=== PATIENT | male | born 1985 | race American Indian/Alaskan Native ===

== ENCOUNTER 2016-11-16 22:34 | Emergency (ER) | payer SELFPAY ==
--- NOTE | 2016-11-17 02:52 | Emergency Department Report ---
ED Extremity Problem HPI - General Chief complaint: Extremity Problem,Nontraumatic Stated complaint: BACK/WRIST PAIN Time Seen by Provider: 11/17/16 02:47 Source: patient Mode of arrival: Ambulatory Limitations: No Limitations - History of Present Illness Initial comments: 30-year-old L comes in for complaint of back pain and wrist pain. Patient reports that he fell off a high stool on Saturday and has had pain ever since. 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 He complains of back pain that, shoots up his back. He reports he has been taken for extra strength Tylenol 2-3 times a day. As well as ibuprofen that his job gives him. Without any resolution. Severity scale (0 -10): 10 - Related Data Previous Rx's Medication Instructions Recorded Last Taken Type Fluticasone/Salmeterol [Advair 1 puff IH BID #1 disk.w.dev 12/02/15 04/19/16 Rx Diskus 250-50 mcg] ALBUTEROL Inhaler [ProAir HFA 2 puff IH QID PRN #1 inhalation 08/13/16 Unknown Rx Inhaler] Albuterol Sulfate [Albuterol 0.63% 0.63 mg IH TID PRN 30 Days 08/13/16 Unknown Rx NEBS] Montelukast [Singulair] 10 mg PO QPM #30 tablet 08/13/16 Unknown Rx predniSONE [Deltasone] 20 mg PO QDAY #5 tab 08/13/16 Unknown Rx ALBUTEROL Inhaler [ProAir HFA 2 puff IH QID PRN #1 inhalation 09/18/16 Unknown Rx Inhaler] Amoxicillin/K Clav Tab [Augmentin 1 tab PO Q12HR #20 tab 09/18/16 Unknown Rx 875 mg] Fluticasone/Salmeterol [Advair 1 each IH DAILY #1 blst.w.dev 09/18/16 Unknown Rx 250-50 Diskus] Ipratropium/Albuterol Sulfate 1 ampul IH Q6HR #1 box 09/18/16 Unknown Rx [Duoneb 0.5 mg-3 mg/3 ml Soln] Nebulizer [Aeroneb Go Nebulizer] 1 each MC 4XD PRN #1 each 09/18/16 Unknown Rx methylPREDNISolone [Medrol] 4 mg PO QAM #21 tab.ds.pk 09/18/16 Unknown Rx Naproxen [Naprosyn TAB] 500 mg PO BID #30 tablet 11/17/16 Unknown Rx methOCARBAMOL [Robaxin TAB] 500 mg PO BID #30 tablet 11/17/16 Unknown Rx Allergies Allergy/AdvReac Type Severity Reaction Status Date / Time No Known Allergies Allergy Verified 11/16/16 22:51 ED Review of Systems ROS: Stated complaint: BACK/WRIST PAIN Other details as noted in HPI Constitutional: denies: chills, fever Musculoskeletal: back pain, arthralgia (bilateral wrists) Neurological: denies: weakness, numbness, paresthesias ED Past Medical Hx - Past Medical History Hx Asthma: Yes - Social History Smoking Status: Never Smoker Substance Use Type: Alcohol, Non Opiate Pain, Prescribed - Medications Home Medications: Home Medications Medication Instructions Recorded Confirmed Last Taken Type Fluticasone/Salmeterol [Advair 1 puff IH BID #1 disk.w.dev 12/02/15 04/19/16 Rx Diskus 250-50 mcg] ALBUTEROL Inhaler [ProAir HFA 2 puff IH QID PRN #1 inhalation 08/13/16 Unknown Rx Inhaler] Albuterol Sulfate [Albuterol 0.63% 0.63 mg IH TID PRN 30 Days 08/13/16 Unknown Rx NEBS] Montelukast [Singulair] 10 mg PO QPM #30 tablet 08/13/16 Unknown Rx predniSONE [Deltasone] 20 mg PO QDAY #5 tab 08/13/16 Unknown Rx ALBUTEROL Inhaler [ProAir HFA 2 puff IH QID PRN #1 inhalation 09/18/16 Unknown Rx Inhaler] Amoxicillin/K Clav Tab [Augmentin 1 tab PO Q12HR #20 tab 09/18/16 Unknown Rx 875 mg] Fluticasone/Salmeterol [Advair 1 each IH DAILY #1 blst.w.dev 09/18/16 Unknown Rx 250-50 Diskus] Ipratropium/Albuterol Sulfate 1 ampul IH Q6HR #1 box 09/18/16 Unknown Rx [Duoneb 0.5 mg-3 mg/3 ml Soln] Nebulizer [Aeroneb Go Nebulizer] 1 each MC 4XD PRN #1 each 09/18/16 Unknown Rx methylPREDNISolone [Medrol] 4 mg PO QAM #21 tab.ds.pk 09/18/16 Unknown Rx Naproxen [Naprosyn TAB] 500 mg PO BID #30 tablet 11/17/16 Unknown Rx methOCARBAMOL [Robaxin TAB] 500 mg PO BID #30 tablet 11/17/16 Unknown Rx ED Physical Exam - General Limitations: No Limitations General appearance: alert, in no apparent distress - Head Head exam: Present: atraumatic - Expanded Upper Extremity Exam Left Shoulder Exam: Present: normal inspection, full ROM Forearm Wrist exam: Present: full ROM, tenderness over anatomical snuff box. Absent: tenderness (no snuffbox tenderness), swelling, deformity, crepidus, dislocation, erythema, pain with axial thumb loading Neuro motor exam: Present: wrist extension intact, thumb opposition intact, thumb IP flexion intact, thumb adduction intact, fingers 2-5 abduction intact Neurosensory exam: Present: radial nerve intact, ulnar nerve intact, median nerve intact Vascular: Present: normal capillary refill. Absent: vascular compromise, Pallo , pulse deficit radial art, pulse deficit ulnar art - Back Exam Back exam: Present: normal inspection, tenderness. Absent: vertebral tenderness - Expanded Back Exam Expanded Back exam: Negative Straight Leg Raising: Left, Right - Neurological Exam Neurological exam: Present: alert, oriented X3 ED Course Vital Signs 11/16/16 11/17/16 22:51 03:34 Temperature 98.4 F 98.1 F Pulse Rate 90 81 Respiratory 16 20 Rate Blood Pressure 137/90 Blood Pressure 137/90 161/82 [Left] O2 Sat by Pulse 95 98 Oximetry ED Medical Decision Making - Medical Decision Making Patient is evaluated by this provider in fast track. We will give patient a shot of Toradol for pain management. Exam is normal except tenderness to the lower back. We will discharge patient on naproxen 1 tablet by mouth 3 times a day and a referral to primary care provider. We will put patient on light duty for one week. Patient verbalized understanding Critical care attestation.: If time is entered above; I have spent that time in minutes in the direct care of this critically ill patient, excluding procedure time. ED Disposition Clinical Impression: Low back pain Qualifiers: Chronicity: acute Back pain laterality: left Sciatica presence: without sciatica Qualified Code(s): M54.5 - Low back pain Wrist pain Qualifiers: Laterality: bilateral Qualified Code(s): M25.531 - Pain in right wrist Disposition: DISCHARGED TO HOME OR SELFCARE Is pt being admited?: No Does the pt Need Aspirin: No Condition: Stable Instructions: Low Back Strain (ED), Wrist Sprain (ED) Additional Instructions: Take medication as prescribed follow up with the primary care provider we have provided for you referral. Placed you on light duty until the of this month. He may return on 11/19/2016. Prescriptions: Naproxen [Naprosyn TAB] 500 mg PO BID #30 tablet methOCARBAMOL [Robaxin TAB] 500 mg PO BID #30 tablet Referrals: PRIMARY CAREMD [Primary Care Provider] - 3-5 Days ALLISON FENTON MD [Staff Physician] - 3-5 Days [facility] [Provider Group] - 3-5 Days Forms: Work/School Release Form(ED)
[2016-11-17] MEDS ORDERED: TORADOL IM ONE (02:57)
[2016-11-17 03:36] VITALS: BP 161/82
== END 2016-11-17 03:48 | disposition home or self-care (01) ==
LOC: ED 22:34
DX: M54.5 Low back pain (principal); M25.531 Pain in right wrist; J45.909 Unspecified asthma, uncomplicated
CPT/HCPCS: 96372; 99282; J1885

== ENCOUNTER 2017-02-11 17:07 | Emergency (ER) | payer SELFPAY ==
[2017-02-11 19:38] VITALS: BP 141/81
[2017-02-11] MEDS ORDERED: MOTRIN PO ONE (20:30)
--- NOTE | 2017-02-11 20:31 | Emergency Department Report ---
ED Back Pain/Injury HPI - General Chief Complaint: Back Pain/Injury Stated Complaint: BACK PAIN Time Seen by Provider: 02/11/17 20:05 Source: patient Limitations: No Limitations - History of Present Illness Initial Comments: This is a 31-year-old male that presents with lower back pain for 3 months. Patient stated he was in a bar stool that tripped and fell from the bar stool onto his back. Patient stated has been seeing a chiropractor with no improvement. PCP ordered an x-ray because on the results. Patient stated took [id number] Tylenol and milligrams every 6 hours to relieve the pain. Patient stated has tenderness in the lumbar thoracic area. Denies any bladder instability. No numbness or tingling sensation in extremities. Patient denies any trauma. No Known drug allergies. 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 Stated that moving the boxes at work aggravates his lower back pain. MD Complaint: back pain -: Gradual, month(s) (3) Place: other (bar) Radiation: none Severity: moderate Severity scale (0 -10): 9 Quality: sharp Consistency: constant Improves With: immobilization, medication, supine, other (Tylenol 800 mg) Worsens With: movement, sitting upright Context: while lifting Associated Symptoms: denies: numbness, difficulty urinating, incontinence, fever /chills - Related Data Previous Rx's Medication Instructions Recorded Last Taken Type Ipratropium/Albuterol Sulfate 1 ampul IH Q6HR #1 box 09/18/16 12/14/16 Rx [Duoneb 0.5 mg-3 mg/3 ml Soln] Fluticasone/Salmeterol [Advair 1 each IH DAILY #1 blst.w.dev 12/17/16 Unknown Rx 250-50 Diskus] Ipratropium/Albuterol Sulfate 1 ampul IH Q6HRT PRN #30 ampul.neb 12/17/16 Unknown Rx [Duoneb 0.5 mg-3 mg/3 ml Soln] Montelukast [Singulair] 10 mg PO QPM #30 tablet 12/17/16 Unknown Rx Prednisone [predniSONE 10 mg 10 mg PO .TAPER #1 tab.ds.pk 12/17/16 Unknown Rx (6-Day Pack, 21 Tabs)] Naproxen [Naprosyn TAB] 500 mg PO BID #20 tablet 02/11/17 Unknown Rx Prednisone [predniSONE] 40 mg PO QDAY 5 Days 02/11/17 Unknown Rx Allergies Allergy/AdvReac Type Severity Reaction Status Date / Time No Known Allergies Allergy Verified 11/16/16 22:51 ED Review of Systems ROS: Stated complaint: BACK PAIN Other details as noted in HPI Constitutional: denies: chills, fever Eyes: denies: eye pain, eye discharge, vision change ENT: denies: ear pain, throat pain Respiratory: denies: cough, shortness of breath, wheezing Cardiovascular: denies: chest pain, palpitations Endocrine: no symptoms reported Gastrointestinal: denies: abdominal pain, nausea, diarrhea Genitourinary: denies: urgency, dysuria Musculoskeletal: denies: back pain, joint swelling, arthralgia Skin: denies: rash, lesions Neurological: denies: headache, weakness, paresthesias Psychiatric: denies: anxiety, depression Hematological/Lymphatic: denies: easy bleeding, easy bruising ED Past Medical Hx - Past Medical History Hx Congestive Heart Failure: No Hx Diabetes: No Hx Asthma: Yes Hx COPD: No - Surgical History Past Surgical History?: No - Social History Smoking Status: Never Smoker Substance Use Type: Alcohol - Medications Home Medications: Home Medications Medication Instructions Recorded Confirmed Last Taken Type Ipratropium/Albuterol Sulfate 1 ampul IH Q6HR #1 box 09/18/16 12/15/16 12/14/16 Rx [Duoneb 0.5 mg-3 mg/3 ml Soln] Fluticasone/Salmeterol [Advair 1 each IH DAILY #1 blst.w.dev 12/17/16 Unknown Rx 250-50 Diskus] Ipratropium/Albuterol Sulfate 1 ampul IH Q6HRT PRN #30 ampul.neb 12/17/16 Unknown Rx [Duoneb 0.5 mg-3 mg/3 ml Soln] Montelukast [Singulair] 10 mg PO QPM #30 tablet 12/17/16 Unknown Rx Prednisone [predniSONE 10 mg 10 mg PO .TAPER #1 tab.ds.pk 12/17/16 Unknown Rx (6-Day Pack, 21 Tabs)] Naproxen [Naprosyn TAB] 500 mg PO BID #20 tablet 02/11/17 Unknown Rx Prednisone [predniSONE] 40 mg PO QDAY 5 Days 02/11/17 Unknown Rx ED Physical Exam - General Limitations: No Limitations General appearance: alert, in no apparent distress - Head Head exam: Present: atraumatic, normocephalic - Eye Eye exam: Present: normal appearance - ENT ENT exam: Present: mucous membranes moist - Neck Neck exam: Present: normal inspection - Respiratory Respiratory exam: Present: normal lung sounds bilaterally. Absent: respiratory distress - Cardiovascular Cardiovascular Exam: Present: regular rate, normal rhythm. Absent: systolic murmur, diastolic murmur, rubs, gallop - GI/Abdominal GI/Abdominal exam: Present: soft, normal bowel sounds - Rectal Rectal exam: Present: deferred - Extremities Exam Extremities exam: Present: normal inspection - Back Exam Back exam: Present: normal inspection, full ROM, tenderness (lumbar and thoracic ). Absent: CVA tenderness (R), CVA tenderness (L), muscle spasm, paraspinal tenderness, rash noted - Neurological Exam Neurological exam: Present: alert, oriented X3, CN II-XII intact - Psychiatric Psychiatric exam: Present: normal affect, normal mood - Skin Skin exam: Present: warm, dry, intact, normal color. Absent: rash ED Course Vital Signs 02/11/17 19:34 Temperature 98.4 F Pulse Rate 66 Respiratory 16 Rate Blood Pressure 141/81 O2 Sat by Pulse 96 Oximetry - Reevaluation(s) Reevaluation #1: 02/11/17 21:04 Reevaluated pain. Pain level is a 2 out of 10 currently. Patient does not feel ill appearance. ED Medical Decision Making - Medical Decision Making Ed course: 31-year-old male that presents with chronic lower back pain for 3 months. 1- ibuprofen 800 mg. 2- x-ray of thoracic and lumbar. Thoracic: suggested mild treating of the thoracic spine may be positional secondary to muscle spasm. No evident fracture. Lumbar. Unremarkable lumbar spine. 3- initially patient to follow-up with the orthopedic doctor in 3-5 days. 4-instructed the patient to come back to emergency room if any bladder stability , numbness or tingling, chest pain and short of breath noted. 5- at this time the patient does not seem toxic or ill appearance. Patient agrees to treatment plan and discharge instructions. No further questions nor from the patient. Critical care attestation.: If time is entered above; I have spent that time in minutes in the direct care of this critically ill patient, excluding procedure time. ED Disposition Clinical Impression: Lumbar radiculopathy Lower back pain Qualifiers: Chronicity: chronic Back pain laterality: unspecified Sciatica presence: without sciatica Qualified Code(s): M54.5 - Low back pain Disposition: DISCHARGED TO HOME OR SELFCARE Is pt being admited?: No Does the pt Need Aspirin: No Condition: Stable Instructions: Naproxen (By mouth), Lumbar Radiculopathy (ED), Chronic Back Pain (ED) Additional Instructions: Follow-up with a primary care doctor in 3-5 days. Follow-up with the orthopedic doctor in 3-5 days. His symptoms worsen such as bladder instability, shortness of breath, numbness or tingling, chest pain please report back to emergency room. Prescriptions: Naproxen [Naprosyn TAB] 500 mg PO BID #20 tablet Prednisone [predniSONE] 40 mg PO QDAY 5 Days Referrals: PRIMARY MD SCARLETT [Primary Care Provider] - 3-5 Days ELSA PARISI MD [Staff Physician] - 3-5 Days [facility] [Outside] - 3-5 Days [facility] [Outside] - 3-5 Days Forms: Work/School Release Form(ED)
--- NOTE | 2017-02-11 22:03 | XRay Report ---
FINAL REPORT EXAM: XR SPINE LUMBOSACRAL 2-3V HISTORY: low back tenderness TECHNIQUE: AP and lateral views lumbar spine PRIORS: None. FINDINGS: Lumbar lordosis is intact. Vertebral body heights and intervertebral disc spaces are preserved. No listhesis, spondylolysis or other fracture. IMPRESSION: Unremarkable lumbar spine radiographs. Consider additional imaging for worsening/persistent symptoms.
--- NOTE | 2017-02-11 22:08 | XRay Report ---
FINAL REPORT EXAM: XR SPINE THORACIC 2V HISTORY: mid back tenderness COMPARISONS: None FINDINGS: AP and lateral views thoracic spine Straightening of the thoracic spine. Vertebral body heights intervertebral disc spaces are preserved. No fractures. Incomplete evaluation of the chest is unremarkable. IMPRESSION: Suggested mild straightening of the thoracic spine may be positional or secondary to muscular spasm. No evident fracture.
== END 2017-02-12 01:24 | disposition home or self-care (01) ==
LOC: ED 17:07
DX: M54.16 Radiculopathy, lumbar region (principal); J45.909 Unspecified asthma, uncomplicated
CPT/HCPCS: 72070; 72100

== ENCOUNTER 2017-07-14 11:39 | Emergency (ER) | payer SELFPAY ==
[2017-07-14] MEDS ORDERED: PROVENTIL IH ONE ×2 (11:54)
[2017-07-14] MEDS ORDERED: ATROVENT IH ONE ×3 (11:54→11:57)
[2017-07-14] MEDS ORDERED: XYLOCAINE 1% MPF 5 mL INFILTRATI ONE (12:09)
[2017-07-14] MEDS ORDERED: ROCEPHIN IM ONE (12:09)
--- NOTE | 2017-07-14 12:11 | Emergency Department Report ---
ED Asthma HPI - General Chief Complaint: Dyspnea/Respdistress Stated Complaint: DEON/ASTHMA Time Seen by Provider: 07/14/17 12:04 Source: patient, RN notes reviewed, old records reviewed Mode of arrival: Ambulatory Limitations: No Limitations - History of Present Illness MD Complaint: "asthma attack" -: Gradual Asthma History: childhood onset Severity: moderate Context: ran out of meds, medication non-compliance Associated Symptoms: productive cough. denies: dry cough, fever Treatments Prior to Arrival: other (no alb dt finances; out of prednisone) - Related Data Previous Rx's Medication Instructions Recorded Last Taken Type Ipratropium/Albuterol Sulfate 1 ampul IH Q6HR #1 box 09/18/16 12/14/16 Rx [DUONEB *Not for PRN Use*] Fluticasone/Salmeterol [Advair 1 each IH DAILY #1 blst.w.dev 12/17/16 Unknown Rx 250-50 Diskus] Ipratropium/Albuterol Sulfate 1 ampul IH Q6HRT PRN #30 ampul.neb 12/17/16 Unknown Rx [DUONEB *Not for PRN Use*] Montelukast [Singulair] 10 mg PO QPM #30 tablet 12/17/16 Unknown Rx Prednisone [predniSONE 10 mg 10 mg PO .TAPER #1 tab.ds.pk 12/17/16 Unknown Rx (6-Day Pack, 21 Tabs)] Naproxen [Naprosyn TAB] 500 mg PO BID #20 tablet 02/11/17 Unknown Rx Prednisone [predniSONE] 40 mg PO QDAY 5 Days 02/11/17 Unknown Rx ALBUTEROL Inhaler [ProAir HFA 2 puff IH TID PRN #1 each 07/14/17 Unknown Rx Inhaler] predniSONE [Deltasone] 60 mg PO DAILY #15 tablet 07/14/17 Unknown Rx Allergies Allergy/AdvReac Type Severity Reaction Status Date / Time No Known Allergies Allergy Verified 11/16/16 22:51 ED Review of Systems ROS: Stated complaint: DEON/ASTHMA Other details as noted in HPI Comment: All other systems reviewed and negative Constitutional: no symptoms reported, see HPI. denies: chills, fever Eyes: as per HPI. denies: eye pain ENT: as per HPI. denies: ear pain, throat pain Respiratory: no symptoms reported, see HPI, shortness of breath, wheezing. denies: cough, orthopnea Cardiovascular: as per HPI. denies: chest pain, palpitations, dyspnea on exertion, orthopnea Endocrine: no symptoms reported, see HPI. denies: excessive sweating, flushing , intolerance to cold, intolerance to heat Gastrointestinal: as per HPI. denies: abdominal pain, nausea, vomiting Genitourinary: as per HPI. denies: urgency, dysuria Musculoskeletal: as per HPI. denies: back pain Skin: as per HPI. denies: rash, lesions Neurological: as per HPI. denies: headache, weakness Psychiatric: as per HPI. denies: anxiety, depression Hematological/Lymphatic: as per HPI. denies: easy bleeding ED Past Medical Hx - Past Medical History Hx Hypertension: No Hx CVA: No Hx Heart Attack/AMI: No Hx Congestive Heart Failure: No Hx Diabetes: No Hx Asthma: Yes Hx COPD: No - Social History Smoking Status: Never Smoker Substance Use Type: Alcohol - Medications Home Medications: Home Medications Medication Instructions Recorded Confirmed Last Taken Type Ipratropium/Albuterol Sulfate 1 ampul IH Q6HR #1 box 09/18/16 12/15/16 12/14/16 Rx [DUONEB *Not for PRN Use*] Fluticasone/Salmeterol [Advair 1 each IH DAILY #1 blst.w.dev 12/17/16 Unknown Rx 250-50 Diskus] Ipratropium/Albuterol Sulfate 1 ampul IH Q6HRT PRN #30 ampul.neb 12/17/16 Unknown Rx [DUONEB *Not for PRN Use*] Montelukast [Singulair] 10 mg PO QPM #30 tablet 12/17/16 Unknown Rx Prednisone [predniSONE 10 mg 10 mg PO .TAPER #1 tab.ds.pk 12/17/16 Unknown Rx (6-Day Pack, 21 Tabs)] Naproxen [Naprosyn TAB] 500 mg PO BID #20 tablet 02/11/17 Unknown Rx Prednisone [predniSONE] 40 mg PO QDAY 5 Days 02/11/17 Unknown Rx ALBUTEROL Inhaler [ProAir HFA 2 puff IH TID PRN #1 each 07/14/17 Unknown Rx Inhaler] predniSONE [Deltasone] 60 mg PO DAILY #15 tablet 07/14/17 Unknown Rx ED Physical Exam - General Limitations: No Limitations General appearance: alert - Head Head exam: Present: atraumatic - Eye Eye exam: Present: PERRL - ENT ENT exam: Present: mucous membranes moist - Neck Neck exam: Present: normal inspection - Respiratory Respiratory exam: Present: normal lung sounds bilaterally, wheezes (b) - Cardiovascular Cardiovascular Exam: Present: regular rate - GI/Abdominal GI/Abdominal exam: Present: soft - Rectal Rectal exam: Present: deferred - Extremities Exam Extremities exam: Present: normal inspection - Back Exam Back exam: Present: normal inspection - Neurological Exam Neurological exam: Present: alert, oriented X3 - Psychiatric Psychiatric exam: Present: normal affect, normal mood - Skin Skin exam: Present: warm, dry, intact ED Course Vital Signs 07/14/17 07/14/17 07/14/17 11:57 12:02 12:43 Pulse Rate [ 81 84 Posterior Bilateral Throughout] Respiratory 18 18 Rate [Posterior Bilateral Throughout] O2 Sat by Pulse 96 Oximetry - Reevaluation(s) Reevaluation #1: 07/14/17 12:45 to er w asthma attack wheezing b on admit improved but still wheezing p 1st tx repeated sat high 90's 1246 99% sat on RA VSS resting quietly dc home w dc poc and fu. no s/s infection no fever no purulent sputum ED Medical Decision Making - Differential Diagnosis asthma ae w or wo infection Critical care attestation.: If time is entered above; I have spent that time in minutes in the direct care of this critically ill patient, excluding procedure time. ED Disposition Clinical Impression: Asthma exacerbation Disposition: DC- TO HOME OR SELFCARE Is pt being admited?: No Does the pt Need Aspirin: No Condition: Stable Instructions: Asthma (ED) Additional Instructions: rest fluids avoid triggers take home meds as instructed [facility] will be cheaper [employer] for pricing follow up pcp Referrals: PRIMARY CARE, [Primary Care Provider] - 3-5 Days NARENDRA CHAMPION MD [Staff Physician] - 3-5 Days Time of Disposition: 12:47
[2017-07-14] MEDS ORDERED: DUONEB *Not for PRN Use IH ONE (12:26)
[2017-07-14 13:23] VITALS: BP 152/64
== END 2017-07-14 13:25 | disposition home or self-care (01) ==
LOC: ED 11:39
DX: J45.901 Unspecified asthma with (acute) exacerbation (principal)
CPT/HCPCS: 94640; 94644; 96372; 99283; J0696; J2930

== ENCOUNTER 2018-05-19 20:40 | Inpatient (IN) | payer SELFPAY ==
[2018-05-19] MEDS ORDERED: PROVENTIL IH ONE (20:51)
[2018-05-19] MEDS ORDERED: NACL 0.9% 1000 ML 1,000 ML IV ONE (20:52)
[2018-05-19] MEDS ORDERED: MAGNESIUM SULFATE 2GM/50ML 2 GM/50 ML BAG IV ONE (21:02)
[2018-05-19 21:14] LABS: Basophils # (Auto) 0.1 K/mm3 (0.0-0.1); Basophils % (Auto) 0.7 % (0.0-1.8); Eosinophils # (Auto) 0.3 K/mm3 (0.0-0.4); Eosinophils % (Auto) 3.8 % (0.0-4.3); Hematocrit 44.2 % (35.5-45.6); Hemoglobin 15.1 gm/dl (11.8-15.2); Lymphocytes # (Auto) 3.5 K/mm3 (1.2-5.4); Lymphocytes % (Auto) 41.9 % (13.4-35.0); Mean Corpuscular HGB Conc 34 % (32-34); Mean Corpuscular Hemoglobin 32 pg (28-32); Mean Corpuscular Volume 95 fl (84-94); Monocytes # (Auto) 0.9 K/mm3 (0.0-0.8); Monocytes % (Auto) 10.5 % (0.0-7.3); Platelet Count 352 K/mm3 (140-440); Red Blood Count 4.66 M/mm3 (3.65-5.03); Red Cell Distribution Width 13.7 % (13.2-15.2)
[2018-05-19 21:28] LABS: BUN/Creatinine Ratio 11; Blood Urea Nitrogen 9 mg/dL (9-20); Calcium 9.2 mg/dL (8.4-10.2); Hemolysis Index 71
--- NOTE | 2018-05-19 21:36 | XRay Report ---
FINAL REPORT EXAM: XR CHEST 1V AP HISTORY: chest pain resp distress TECHNIQUE: upright single view chest PRIORS: None. FINDINGS: Cardiac and mediastinal contours are unremarkable. No focal pulmonary infiltrate is identified. No pleural fluid collection seen. Pulmonary vasculature is unremarkable. IMPRESSION: Negative single-view chest
[2018-05-19] MEDS ORDERED: DUONEB *Not for PRN Use IH ONE (22:46)
--- NOTE | 2018-05-20 01:36 | Emergency Department Report ---
HPI - General Chief Complaint: Dyspnea/Respdistress Time Seen by Provider: 05/19/18 20:51 - HPI HPI: The patient is a 32-year-old male with a sniffing history of asthma, who presents for evaluation of dyspnea. The patient reports constant and severe dyspnea for the past one day, exacerbated with exertion or coughing, improved at rest and with breathing treatments. The patient denies trauma to the chest, chest pain, syncope, hemoptysis, unilateral leg swelling, recent immobilization , history of DVT or PE, hx of recent cancer. ED Past Medical Hx - Past Medical History Previous Medical History?: Yes Hx Hypertension: No Hx CVA: No Hx Heart Attack/AMI: No Hx Congestive Heart Failure: No Hx Diabetes: No Hx Asthma: Yes Hx COPD: No - Surgical History Past Surgical History?: No - Social History Smoking Status: Never Smoker Substance Use Type: Alcohol - Medications Home Medications: Home Medications Medication Instructions Recorded Confirmed Last Taken Type Ipratropium/Albuterol Sulfate 1 ampul IH Q6HR #1 box 09/18/16 05/19/18 12/14/16 Rx [DUONEB *Not for PRN Use*] Fluticasone/Salmeterol [Advair 1 each IH DAILY #1 blst.w.dev 12/17/16 05/19/18 Unknown Rx 250-50 Diskus] Ipratropium/Albuterol Sulfate 1 ampul IH Q6HRT PRN #30 ampul.neb 12/17/16 Unknown Rx [DUONEB *Not for PRN Use*] Montelukast [Singulair] 10 mg PO QPM #30 tablet 12/17/16 05/19/18 Unknown Rx Prednisone [predniSONE 10 mg 10 mg PO .TAPER #1 tab.ds.pk 12/17/16 05/19/18 Unknown Rx (6-Day Pack, 21 Tabs)] Naproxen [Naprosyn TAB] 500 mg PO BID #20 tablet 02/11/17 05/19/18 Unknown Rx Prednisone [predniSONE] 40 mg PO QDAY 5 Days tab 02/11/17 05/19/18 Unknown Rx ALBUTEROL Inhaler [ProAir HFA 2 puff IH TID PRN #1 each 07/14/17 05/19/18 Unknown Rx Inhaler] predniSONE [Deltasone] 60 mg PO DAILY #15 tablet 07/14/17 05/19/18 Unknown Rx ED Review of Systems ROS: Stated complaint: ASTHMA Other details as noted in HPI Constitutional: denies: fever ENT: denies: throat or neck pain Respiratory: reports: cough, shortness of breath Cardiovascular: denies: chest pain Endocrine: denies unexplained weight loss or gain Gastrointestinal: denies: abdominal pain, nausea Genitourinary: denies: dysuria Musculoskeletal: denies: leg swelling Skin: denies: rash Neurological: denies: headache Hematological/Lymphatic: denies: easy bleeding or easy bruising Psych: denies sadness or hopelessness Physical Exam - Physical Exam Vital Signs: Vital Signs 05/19/18 05/19/18 05/19/18 20:45 21:06 22:26 Temperature 97.9 F Pulse Rate 121 H 105 H Pulse Rate [ 80 Left Middle Lobe] Respiratory 26 H 16 Rate Respiratory 18 Rate [Left Middle Lobe] Blood Pressure 170/85 Blood Pressure 105/66 [Left] O2 Sat by Pulse 95 100 Oximetry 05/19/18 05/19/18 23:48 23:51 Temperature Pulse Rate Pulse Rate [ 86 84 Left Middle Lobe] Respiratory Rate Respiratory 20 20 Rate [Left Middle Lobe] Blood Pressure Blood Pressure [Left] O2 Sat by Pulse Oximetry Physical Exam: General: well-nourished, well-developed, no acute distress Head: Normocephalic, atraumatic Eyes: normal sclera ENT: Mucous membranes are pink and moist Neck: trachea midline, neck supple, No neck stiffness, no cervical adenopathy Respiratory: Diminished breath sounds and wheezing present throughout lung iyer bilaterally, costal retractions present, patient in mild respiratory distress Cardio: S1 and S2 present, no murmurs, rubs, gallops, capillary refill is brisk Abdomen: Normoactive bowel sounds, soft abdomen, no rigidity, no guarding or rebound tenderness Musc: No pitting edema Skin: No rash Neuro: no facial drooping, normal speech Psych: Normal affect ED Course Vital Signs 05/19/18 05/19/18 05/19/18 20:45 21:06 22:26 Temperature 97.9 F Pulse Rate 121 H 105 H Pulse Rate [ 80 Left Middle Lobe] Respiratory 26 H 16 Rate Respiratory 18 Rate [Left Middle Lobe] Blood Pressure 170/85 Blood Pressure 105/66 [Left] O2 Sat by Pulse 95 100 Oximetry 05/19/18 05/19/18 23:48 23:51 Temperature Pulse Rate Pulse Rate [ 86 84 Left Middle Lobe] Respiratory Rate Respiratory 20 20 Rate [Left Middle Lobe] Blood Pressure Blood Pressure [Left] O2 Sat by Pulse Oximetry ED Medical Decision Making - Lab Data Result diagrams: 05/19/18 21:01 05/19/18 21:01 - Medical Decision Making The patient was seen and examined by myself. The patient is placed on a color television console monitor and continuous pulse ox. On initial evaluation, the patient was found to be in no distress. Evaluation orders were placed. The patient is given multiple breathing treatments, IV site measuring, IV magnesium. Chest x- ray is negative for emergent cardio-pulmonary disease process. Lab results reveal low PO2 of 65 on ABG. The patient is reevaluated and found to remain with wheezing and symptomatic. As the patient is found to have refractory hypoxemia despite breathing treatments and steroids, the patient will be admitted for continued treatment and close cardio pulmonary monitoring. The on- call hospitalist service was contacted. They agreed to admit the patient for further treatment and close monitoring. The ED admit order was placed. The patient was admitted in guarded condition. Critical care attestation.: If time is entered above; I have spent that time in minutes in the direct care of this critically ill patient, excluding procedure time. ED Disposition Clinical Impression: Hypoxemia Status asthmaticus Qualifiers: Asthma severity: severe Asthma persistence: persistent Qualified Code(s): J45.52 - Severe persistent asthma with status asthmaticus Disposition: OP ADMIT IP TO THIS HOSP Is pt being admited?: Yes Does the pt Need Aspirin: Yes Condition: Serious Referrals: PRIMARY CARE, [Primary Care Provider] - 3-5 Days Time of Disposition: 01:34
[2018-05-20] MEDS ORDERED: DUONEB *Not for PRN Use IH ONE ×3 (02:12→05:24)
[2018-05-20] MEDS ORDERED: PROVENTIL IH PRN ×2 (02:21→21:55)
[2018-05-20] MEDS ORDERED: TYLENOL PO PRN (02:23)
[2018-05-20] MEDS ORDERED: ROBITUSSIN PO PRN (02:52)
--- NOTE | 2018-05-20 07:34 | History and Physical Report ---
CHIEF COMPLAINT: Shortness of breath. HISTORY OF PRESENT ILLNESS: The patient is a 32-year-old male with known history of asthma, who has been having shortness of breath going on for about one day. The patient states he thought he could handle it at home, but it continued to be progressively worse with associated cough and there was no history of fever, no history of chest pain, no history of nausea or vomiting and patient presented to the Emergency Room. PAST MEDICAL HISTORY: Pertinent for asthma. PAST SURGICAL HISTORY: Unremarkable. FAMILY HISTORY: Noncontributory. SOCIAL HISTORY: The patient does not smoke, drinks alcohol, and does not use illicit drugs. MEDICATIONS: The patient is on DuoNeb nebulizer 1 ampule every 6 hours, fluticasone-salmeterol 250/50 one inhalation daily, montelukast/Singulair 10 mg by mouth every night, prednisone dose pack, naproxen 500 mg by mouth twice daily, albuterol inhaler 2 puffs inhalation 3 times daily. ALLERGIES: There are no known drug allergies. REVIEW OF SYSTEMS: CONSTITUTIONAL: There is no fever, no chills, no diaphoresis. HEENT: There is no headache or sore throat. CARDIOVASCULAR SYSTEM: There is no chest pain or orthopnea. RESPIRATORY SYSTEM: Shortness of breath present. No cough. GASTROINTESTINAL SYSTEM: There is no nausea, no vomiting, no abdominal pain, diarrhea, or constipation. NEUROLOGICAL SYSTEM: There is no numbness, no dizziness, no altered mental status. MUSCULOSKELETAL SYSTEM: There is no joint pain or swelling. DERMATOLOGICAL SYSTEM: There is no skin rash or itching. GENITOURINARY SYSTEM: There is no dysuria, hematuria, or flank pain. Rest of system review is normal. PHYSICAL EXAMINATION: GENERAL: At the time of exam, the patient was found to be alert, oriented x 3, and in mild distress due to shortness of breath. VITAL SIGNS: At the initial time of presentation, it shows a temperature of 97.9 degrees Fahrenheit, pulse of 121, respiration 26, blood pressure 170/85, O2 sat of 95% on room air. HEENT: Show pupils to be equal, round, reactive to light and accommodation. Extraocular muscles are intact. NECK: Supple with no JVD or carotid bruit. CARDIOVASCULAR SYSTEM: Show normal first and second heart sounds with no gallops or murmur. RESPIRATORY SYSTEM: Show reduced air entry on both sides of the lungs with expiratory wheezing. GASTROINTESTINAL SYSTEM: Show abdomen to be full, soft, nontender with no organomegaly or rigidity. NEUROLOGIC: Shows no focal deficit. MUSCULOSKELETAL SYSTEM: Show no joint swelling or tenderness. DERMATOLOGICAL SYSTEM: Show no skin rash. GENITOURINARY SYSTEM: Showing no costovertebral angle tenderness. PERTINENT LABORATORY AND IMAGING STUDIES: The patient had chest x-rays done that shows no acute cardiopulmonary lesion. The patient's lab results shows CBC with normal white count, normal hemoglobin, and normal hematocrit with CBC differential showing high lymphocyte count of 41.9% and high monocyte count of 10.5% with normal segmented neutrophils. The patient's ABG shows low pH of 7.34 with normal pCO2 and low pO2 of 65% with low O2 sat of 91% and this was done on room air. The patient's chemistry was unremarkable. DIAGNOSIS: Asthma exacerbation. PLAN: 1. The patient will be admitted to medical floor. The patient will be on DuoNeb nebulizer q.6 hours. The patient will be on IV Solu-Medrol 60 mg q.6 hours. The patient will also be on IV Levaquin 750 mg daily. 2. The patient will be on DuoNeb q.i.d. The patient will be on Robitussin 200 mg/10 mL every 4 hours as needed for cough. The patient's diet will be regular diet. The patient will be on oxygen by nasal cannula at 2 liter per minute. The patient will be on other p.r.n. medications like Tylenol 650 mg by mouth every 4 hours for fever and headache. The patient's home medications will be applied as shown in the medication reconciliation section. The patient's diet will be regular diet. JOB# [id number] OCN/NTS
[2018-05-20] MEDS: DUONEB *Not for PRN Use IH SCH ×4 (08:32→21:11)
[2018-05-20] MEDS ORDERED: NAPROSYN PO SCH (10:00)
[2018-05-20] MEDS ORDERED: NORCO 5/325 PO PRN (11:22)
--- NOTE | 2018-05-20 11:22 | Progress Note ---
Assessment and Plan Assessment and plan: Mr. Jacques is a 32 yo man with a history of asthma who presented with sob. He was admitted because pO2 was only 65. -Status Asthmaticus: treat with nebs and steroids -Acute hypoxic respiratory failure: try to wean off o2 -DVT prophylaxis: sq heparin History Interval history: Patient was seen and examined. Follow-up on current diagnosis of sob, improved. Overnight uneventful. Patient denies any chest pain, shortness breath, nausea/ vomiting or severe headaches. Imaging, nursing note, chart, labs and old chart reviewed. Discussed with patient. Hospitalist Physical - Physical exam Narrative exam: GEN: WDWN, NAD, Awake, Alert, Orientated x3 HEENT: NCAT, EOMI, PERRL, OP Clear NECK: supple, no adenopathy, no thyromegaly, no JVD CVS/HEART: RRR, normal S1S2, pulses present bilaterally CHEST/LUNGS: mildly diminished bs bilaterally, Symmetrical chest expansion, good air entry bilaterally GI/Abdomen: soft, NTND, good bowel sounds, no guarding or rebound /Bladder: no suprapubic tenderness, no CVA or paraspinal tenderness EXT/Skin: no c/c/e, no obvious rash MSK: FROM x 4 Neuro: CN 2-12 grossly intact, no new focal deficits Psych: calm - Constitutional Vitals: Temp Pulse Resp BP Pulse Ox 98.4 F 84 18 136/64 94 05/20/18 04:38 05/20/18 05:35 05/20/18 05:35 05/20/18 04:38 05/20/18 04:38 Results - Labs CBC & Chem 7: 05/19/18 21:01 05/19/18 21:01 Labs: Laboratory Last Values WBC 8.3 K/mm3 (4.5-11.0) 05/19/18 21:01 RBC 4.66 M/mm3 (3.65-5.03) 05/19/18 21:01 Hgb 15.1 gm/dl (11.8-15.2) 05/19/18 21:01 Hct 44.2 % (35.5-45.6) 05/19/18 21:01 MCV 95 fl (84-94) H 05/19/18 21:01 MCH 32 pg (28-32) 05/19/18 21:01 MCHC 34 % (32-34) 05/19/18 21:01 RDW 13.7 % (13.2-15.2) 05/19/18 21:01 Plt Count 352 K/mm3 (140-440) 05/19/18 21:01 Lymph % (Auto) 41.9 % (13.4-35.0) H 05/19/18 21:01 [place] % (Auto) 10.5 % (0.0-7.3) H 05/19/18 21:01 Eos % (Auto) 3.8 % (0.0-4.3) 05/19/18 21:01 Baso % (Auto) 0.7 % (0.0-1.8) 05/19/18 21:01 Lymph # 3.5 K/mm3 (1.2-5.4) 05/19/18 21:01 [place] # 0.9 K/mm3 (0.0-0.8) H 05/19/18 21:01 Eos # 0.3 K/mm3 (0.0-0.4) 05/19/18 21:01 Baso # 0.1 K/mm3 (0.0-0.1) 05/19/18 21:01 Seg Neutrophils % 43.1 % (40.0-70.0) 05/19/18 21: Seg Neutrophils # 3.6 K/mm3 (1.8-7.7) 05/19/18 21:01 POC ABG pH 7.340 (7.35-7.45) L 05/20/18 00:05 POC ABG pCO2 39.7 (35-45) 05/20/18 00:05 POC ABG pO2 65 (80-105) L 05/20/18 00:05 POC ABG HCO3 21.4 05/20/18 00:05 POC ABG Total CO2 23 05/20/18 00:05 POC ABG O2 Sat 91 05/20/18 00:05 POC ABG Base Excess -4 05/20/18 00:05 FiO2 21 % 05/20/18 00:05 Sodium 142 mmol/L (137-145) 05/19/18 21:01 Potassium 4.1 mmol/L (3.6-5.0) 05/19/18 21: Chloride 103.4 mmol/L (98-107) 05/19/18 21:01 Carbon Dioxide 24 mmol/L (22-30) 05/19/18 21:01 Anion Gap 19 mmol/L 05/19/18 21:01 BUN 9 mg/dL (9-20) 05/19/18 21:01 Creatinine 0.8 mg/dL (0.8-1.5) 05/19/18 21:01 Estimated GFR > 60 ml/min 05/19/18 21:01 BUN/Creatinine Ratio 11 % 05/19/18 21:01 Glucose 101 mg/dL (75-100) H 05/19/18 21:01 Calcium 9.2 mg/dL (8.4-10.2) 05/19/18 21:01 NT-Pro-B Natriuret Pep 36.89 pg/mL (0-450) 05/19/18 21:01
[2018-05-20] MEDS: LEVAQUIN 750MG/150ML 750 MG/150 ML BAG IV SCH (12:15)
[2018-05-20] MEDS: HEPARIN SUB-Q SCH ×2 (12:15→22:49)
[2018-05-20] MEDS: PROTONIX PO SCH (12:16)
[2018-05-20] MEDS ORDERED: SINGULAIR PO SCH (18:00)
[2018-05-20] MEDS ORDERED: AMBIEN PO PRN (22:00)
[2018-05-21] MEDS: DUONEB *Not for PRN Use IH SCH ×2 (07:50→12:15)
[2018-05-21] MEDS: PROTONIX PO SCH (09:26)
[2018-05-21] MEDS: HEPARIN SUB-Q SCH (09:26)
[2018-05-21] MEDS: LEVAQUIN 750MG/150ML 750 MG/150 ML BAG IV SCH (09:26)
--- NOTE | 2018-05-21 11:45 | Discharge Summary ---
Providers - Providers Date of Admission: 05/20/18 02:18 Date of discharge: 05/21/18 Attending physician: NASEEM GILBERT Primary care physician: DORITA PANTOJA MD Hospitalization Condition: Stable Hospital course: Mr. Jacques is a 32 yo man with a history of asthma who presented with sob. He was admitted because pO2 was only 65. -Status Asthmaticus: treat with nebs and steroids, patient can't afford Advair -Acute hypoxic respiratory failure: weaned off o2 -DVT prophylaxis: sq heparin Disposition: DC-01 TO HOME OR SELFCARE Time spent for discharge: 34 minutes Core Measure Documentation - Palliative Care Palliative Care/ Comfort Measures: Not Applicable - Core Measures Any of the following diagnoses?: none - VTE Discharge Requirements Deep Vein Thrombosis/Pulmonary Embolism Present on Admission: No Has pt received <5 days of overlap therapy or INR<2.0: No Anticoagulant overlap therapy prescribed at discharge: No Contraindication No Overlap Therapy order at DC: Not Indicated Exam - Physical Exam Narrative exam: GEN: WDWN, NAD, Awake, Alert, Orientated x3 HEENT: NCAT, EOMI, PERRL, OP Clear NECK: supple, no adenopathy, no thyromegaly, no JVD CVS/HEART: RRR, normal S1S2, pulses present bilaterally CHEST/LUNGS: cta b, Symmetrical chest expansion, good air entry bilaterally GI/Abdomen: soft, NTND, good bowel sounds, no guarding or rebound /Bladder: no suprapubic tenderness, no CVA or paraspinal tenderness EXT/Skin: no c/c/e, no obvious rash MSK: FROM x 4 Neuro: CN 2-12 grossly intact, no new focal deficits Psych: calm - Constitutional Vitals: Temp Pulse Resp BP Pulse Ox 98.3 F 78 16 104/42 94 05/21/18 04:50 05/21/18 08:00 05/21/18 08:00 05/21/18 04:50 05/21/18 07:50 Plan Activity: other (no strenous activity until cleared by PCP) Diet: regular Follow up with: PRIMARY CAREMD [Primary Care Provider] - 3-5 Days [facility] [Provider Group] - 7 Days Prescriptions: ALBUTEROL Inhaler [ProAir HFA Inhaler] 2 puff IH TID PRN #1 each PRN Reason: Wheezing Ipratropium/Albuterol Sulfate [DUONEB *Not for PRN Use*] 1 ampul IH Q6HRT PRN # 30 ampul.neb PRN Reason: sob or wheezing Montelukast [Singulair] 10 mg PO QPM #30 tablet Pantoprazole [Protonix TAB] 40 mg PO QDAY #7 tablet
[2018-05-21 13:41] VITALS: BP 115/58
[2018-05-22] MEDS ORDERED: LEVAQUIN PO SCH (10:00)
== END 2018-05-21 14:58 | disposition home or self-care (01) | DRG 189 ==
LOC: ED 20:40 → 3A 05-20 02:18
PROVIDERS: ADMIT Internal Medicine; ATTEND Internal Medicine
DX: J96.01 Acute respiratory failure with hypoxia (principal); J45.52 Severe persistent asthma with status asthmaticus; Z79.51 Long term (current) use of inhaled steroids
CPT/HCPCS: 36415; 71045; 80048; 82803; 83880; 85025; 93005; 93010; 94640; 96361; 96365; J1644; J1956; J2920; J2930; J3475; J7030

== ENCOUNTER 2018-07-28 21:35 | Emergency (ER) | payer SELFPAY ==
[2018-07-28 21:48] VITALS: BP 137/81
--- NOTE | 2018-07-28 23:33 | XRay Report ---
FINAL REPORT PROCEDURE: Right wrist. TECHNIQUE: Three views. HISTORY: Pain and swelling. COMPARISON: No prior studies are available for comparison. FINDINGS: The bones appear intact without fracture or dislocation. The joint spaces appear normal. The soft tissues are unremarkable. IMPRESSION: Normal study.
--- NOTE | 2018-07-28 23:38 | Emergency Department Report ---
ED Upper Extremity Inj HPI - General Chief Complaint: Extremity Injury, Upper Stated Complaint: RT WRIST PAIN Time Seen by Provider: 07/28/18 22:20 Source: patient Mode of arrival: Ambulatory Limitations: No Limitations - History of Present Illness Initial Comments: This is a 32-year-old male nontoxic, well nourished in appearance, no acute signs of distress presents to the ED with c/o of right wrist pain 4 days. Patient stated that a heavy drum fell on right wrist at work. Patient denies any other trauma. Patient denies any numbness, tingling, fever, chills, nausea , vomiting, chest pain, shortness of breath, headache, stiff neck. Patient denies any joint swelling or joint redness. Patient stated has some decreased ROM due to pain. Patient denies any allergies or significant past medical history. MD Complaint: Injury to:: right, wrist -: days(s) (4) Other Extremity Injury: Wrist: Right Other Injuries: none Place: work Severity scale (0 -10): 8 Improves With: immobilization Worsens With: movement of extremity Context: direct blow Associated Symptoms: denies other symptoms. denies: weakness, numbness, neck pain, suspects foreign body, nausea/vomiting, heard/felt popping sensat - Related Data Previous Rx's Medication Instructions Recorded Last Taken Type Fluticasone/Salmeterol [Advair 1 each IH DAILY #1 blst.w.dev 12/17/16 Unknown Rx 250-50 Diskus] ALBUTEROL Inhaler (OR & NICU) 2 puff IH TID PRN #1 each 05/21/18 Unknown Rx [ProAir HFA Inhaler] Acetaminophen [Acetaminophen TAB] 650 mg PO Q4H PRN #30 tablet 05/21/18 Unknown Rx Ipratropium/Albuterol Sulfate 1 ampul IH BIDRT #1 box 05/21/18 12/14/16 Rx [DUONEB *Not for PRN Use*] Ipratropium/Albuterol Sulfate 1 ampul IH Q6HRT PRN #30 ampul.neb 05/21/18 Unknown Rx [DUONEB *Not for PRN Use*] Montelukast [Singulair] 10 mg PO QPM #30 tablet 05/21/18 Unknown Rx Pantoprazole [Protonix TAB] 40 mg PO QDAY #7 tablet 05/21/18 Unknown Rx Ibuprofen [Motrin] 600 mg PO Q8H PRN #20 tablet 07/28/18 Unknown Rx Allergies Allergy/AdvReac Type Severity Reaction Status Date / Time No Known Allergies Allergy Verified 11/16/16 22:51 ED Review of Systems ROS: Stated complaint: RT WRIST PAIN Other details as noted in HPI Constitutional: denies: chills, fever Eyes: denies: eye pain, eye discharge, vision change ENT: denies: ear pain, throat pain Respiratory: denies: cough, shortness of breath, wheezing Cardiovascular: denies: chest pain, palpitations Endocrine: no symptoms reported Gastrointestinal: denies: abdominal pain, nausea, diarrhea Genitourinary: denies: urgency, dysuria Musculoskeletal: denies: back pain, joint swelling, arthralgia Skin: denies: rash, lesions Neurological: denies: headache, weakness, paresthesias Psychiatric: denies: anxiety, depression Hematological/Lymphatic: denies: easy bleeding, easy bruising ED Past Medical Hx - Past Medical History Previous Medical History?: Yes Hx Hypertension: No Hx CVA: No Hx Heart Attack/AMI: No Hx Congestive Heart Failure: No Hx Diabetes: No Hx Asthma: Yes Hx COPD: No - Surgical History Past Surgical History?: No - Social History Smoking Status: Never Smoker Substance Use Type: Alcohol - Medications Home Medications: Home Medications Medication Instructions Recorded Confirmed Last Taken Type Fluticasone/Salmeterol [Advair 1 each IH DAILY #1 blst.w.dev 12/17/16 05/19/18 Unknown Rx 250-50 Diskus] ALBUTEROL Inhaler (OR & NICU) 2 puff IH TID PRN #1 each 05/21/18 Unknown Rx [ProAir HFA Inhaler] Acetaminophen [Acetaminophen TAB] 650 mg PO Q4H PRN #30 tablet 05/21/18 Unknown Rx Ipratropium/Albuterol Sulfate 1 ampul IH BIDRT #1 box 05/21/18 05/19/18 Rx [DUONEB *Not for PRN Use*] Ipratropium/Albuterol Sulfate 1 ampul IH Q6HRT PRN #30 ampul.neb 05/21/18 Unknown Rx [DUONEB *Not for PRN Use*] Montelukast [Singulair] 10 mg PO QPM #30 tablet 05/21/18 Unknown Rx Pantoprazole [Protonix TAB] 40 mg PO QDAY #7 tablet 05/21/18 Unknown Rx Ibuprofen [Motrin] 600 mg PO Q8H PRN #20 tablet 07/28/18 Unknown Rx ED Physical Exam - General Limitations: No Limitations General appearance: alert, in no apparent distress - Head Head exam: Present: atraumatic, normocephalic - Eye Eye exam: Present: normal appearance - ENT ENT exam: Present: mucous membranes moist - Neck Neck exam: Present: normal inspection - Respiratory Respiratory exam: Present: normal lung sounds bilaterally. Absent: respiratory distress - Cardiovascular Cardiovascular Exam: Present: regular rate, normal rhythm. Absent: systolic murmur, diastolic murmur, rubs, gallop - GI/Abdominal GI/Abdominal exam: Present: soft, normal bowel sounds - Rectal Rectal exam: Present: deferred - Extremities Exam Extremities exam: Present: normal inspection, full ROM, tenderness, normal capillary refill. Absent: joint swelling - Expanded Upper Extremity Exam Right General: Present: normal inspection Shoulder Exam: Present: normal inspection, full ROM. Absent: tenderness, swelling Upper Arm exam: Present: normal inspection, full ROM. Absent: tenderness, swelling Elbow exam: Present: normal inspection, full ROM. Absent: tenderness, swelling Forearm Wrist exam: Present: normal inspection, full ROM. Absent: tenderness, swelling Hand Wrist exam: Present: normal inspection, full ROM, tenderness. Absent: swelling, abrasion, laceration, ecchymosis, deformity, crepidus, dislocation, erythema, amputation, nail avulsion, subungual hematoma Neuro motor exam: Present: wrist extension intact, thumb opposition intact, thumb IP flexion intact, thumb adduction intact, fingers 2-5 abduction intact Neurosensory exam: Present: 2-point discrimination, radial nerve intact, ulnar nerve intact, median nerve intact Vascular: Present: vascular compromise, normal capillary refill, radial pulse, brachial pulse, ulnar pulse - Back Exam Back exam: Present: normal inspection - Neurological Exam Neurological exam: Present: alert, oriented X3 - Psychiatric Psychiatric exam: Present: normal affect, normal mood - Skin Skin exam: Present: warm, dry, intact, normal color. Absent: rash ED Course Vital Signs 07/28/18 21:47 Temperature 98.8 F Pulse Rate 83 Respiratory 18 Rate Blood Pressure 137/81 O2 Sat by Pulse 97 Oximetry - Reevaluation(s) Reevaluation #1: 07/28/18 23:46 Patient is speaking in full sentences with no signs of distress noted. ED Medical Decision Making - Medical Decision Making This is a 32-year-old male that presents with right wrist strain. Patient is stable and was examined by me. I referred patient to an orthopedic doctor for further evaluation for possible MRI. X-ray has been obtained and dictated by the radiologist. Patient is notified of the x-ray report with noted by the patient. Patient does have normal gait with no tenderness and no joint swelling. No ecchymosis. no joint redness or swelling. Not warm to touch. No signs of cellulites present. Patient received a wrist immobilizer for pain comfort. Patient was instructed to RICE therapy. Patient received Motrin for pain. Patient is discharged with Motrin. At time of discharge, the patient does not seem toxic or ill in appearance. No acute signs of distress noted. Patient agrees to discharge treatment plan of care. No further questions noted by the patient. Critical care attestation.: If time is entered above; I have spent that time in minutes in the direct care of this critically ill patient, excluding procedure time. ED Disposition Clinical Impression: Strain of right wrist Qualifiers: Encounter type: initial encounter Qualified Code(s): S66.911A - Strain of unspecified muscle, fascia and tendon at wrist and hand level, right hand, initial encounter Disposition: - TO HOME OR SELFCARE Is pt being admited?: No Does the pt Need Aspirin: No Condition: Stable Instructions: Wrist Injury (ED), RICE Therapy (ED) Additional Instructions: Follow-up with a orthopedic doctor in 3-5 days or if symptoms worsen and continue return to emergency room as soon as possible. Prescriptions: Ibuprofen [Motrin] 600 mg PO Q8H PRN #20 tablet PRN Reason: Pain Referrals: PRIMARY CAREMD [Primary Care Provider] - 3-5 Days ELSA PARISI MD [Staff Physician] - 3-5 Days [facility] [Outside] - 3-[address] [facility] [Outside] - 3-5 Days Forms: Work/School Release Form(ED)
[2018-07-28] MEDS ORDERED: MOTRIN PO ONE (23:39)
== END 2018-07-29 00:10 | disposition home or self-care (01) ==
LOC: ED 21:35
DX: S66.911A Strain of unspecified muscle, fascia and tendon at wrist and hand level, right hand, initial encounter (principal); J45.909 Unspecified asthma, uncomplicated; W20.8XXA Other cause of strike by thrown, projected or falling object, initial encounter; Y93.89 Activity, other specified; Y99.0 Civilian activity done for income or pay; Y92.69 Other specified industrial and construction area as the place of occurrence of the external cause

== ENCOUNTER 2018-08-01 00:27 | Emergency (ER) | payer OTHER ==
[2018-08-01 00:32] VITALS: BP 144/89
--- NOTE | 2018-08-01 00:58 | XRay Report ---
FINAL REPORT EXAM: XR FOREARM RT HISTORY: right arm pain and swelling TECHNIQUE: Single lateral view of the right forearm PRIORS: None. FINDINGS: The bones are normally aligned and mineralized. There is no evidence of fracture or subluxation. The soft tissues are unremarkable. IMPRESSION: No evidence of acute injury.
--- NOTE | 2018-08-01 01:55 | Emergency Department Report ---
HPI - General Chief Complaint: Extremity Injury, Upper Time Seen by Provider: 08/01/18 01:51 - HPI HPI: Patient states object at work fell on his right forearm Saturday, 6 days ago and the area been hurt never since.. Patient denies any redness to the area but complaining of swelling. Denies any alleviating factor, but movement is an exacerbating factor. Described pain as sharp, 6 out of 10, without radiation. Patient denies any previous history of this pain. He has been taking over-the- counter medication with minimal relief. ED Past Medical Hx - Past Medical History Previous Medical History?: Yes Hx Hypertension: No Hx CVA: No Hx Heart Attack/AMI: No Hx Congestive Heart Failure: No Hx Diabetes: No Hx Asthma: Yes Hx COPD: No - Surgical History Past Surgical History?: No - Social History Smoking Status: Never Smoker Substance Use Type: Alcohol - Medications Home Medications: Home Medications Medication Instructions Recorded Confirmed Last Taken Type Fluticasone/Salmeterol [Advair 1 each IH DAILY #1 blst.w.dev 12/17/16 05/19/18 Unknown Rx 250-50 Diskus] ALBUTEROL Inhaler (OR & NICU) 2 puff IH TID PRN #1 each 05/21/18 Unknown Rx [ProAir HFA Inhaler] Acetaminophen [Acetaminophen TAB] 650 mg PO Q4H PRN #30 tablet 05/21/18 Unknown Rx Ipratropium/Albuterol Sulfate 1 ampul IH BIDRT #1 box 05/21/18 05/19/18 Rx [DUONEB *Not for PRN Use*] Ipratropium/Albuterol Sulfate 1 ampul IH Q6HRT PRN #30 ampul.neb 05/21/18 Unknown Rx [DUONEB *Not for PRN Use*] Montelukast [Singulair] 10 mg PO QPM #30 tablet 05/21/18 Unknown Rx Pantoprazole [Protonix TAB] 40 mg PO QDAY #7 tablet 05/21/18 Unknown Rx Ibuprofen [Motrin] 600 mg PO Q8H PRN #20 tablet 07/28/18 Unknown Rx Cyclobenzaprine [Flexeril] 10 mg PO TID PRN #14 tablet 08/01/18 Unknown Rx ED Review of Systems ROS: Stated complaint: ARM PAIN Other details as noted in HPI Comment: All other systems reviewed and negative Constitutional: denies: chills, diaphoresis, fever, malaise Gastrointestinal: denies: abdominal pain, nausea, vomiting Genitourinary: denies: urgency Musculoskeletal: joint swelling, myalgia Physical Exam - Physical Exam Vital Signs: Vital Signs 08/01/18 08/01/18 00:31 00:33 Temperature 99.2 F 99.2 F Pulse Rate 84 82 Respiratory 16 16 Rate Blood Pressure 144/89 Blood Pressure 144/89 [Right] O2 Sat by Pulse 97 98 Oximetry Physical Exam: - Physical Exam Physical Exam: - General Limitations: No Limitations General appearance: alert, in no apparent distress. - Head Head exam: Present: atraumatic, normocephalic - Eye Eye exam: Present: normal appearance - ENT ENT exam: Present: mucous membranes moist - Neck Neck exam: Present: normal inspection - Respiratory Respiratory exam: Present: normal lung sounds bilaterally. Absent: respiratory distress - Cardiovascular Cardiovascular Exam: Present: normal rhythm. Absent: systolic murmur, diastolic murmur, rubs, gallop - GI/Abdominal GI/Abdominal exam: Present: soft, normal bowel sounds - Extremities Exam Extremities exam: Present: Right forearm tender to palpation, no swelling, good range of motion - Back Exam Back exam: Present: normal inspection - Neurological Exam Neurological exam: Present: alert, oriented X3 - Psychiatric Psychiatric exam: normal affect and mood - Skin Skin exam: Present: warm, dry, intact, normal color. Absent: rash ED Course Vital Signs 08/01/18 08/01/18 00:31 00:33 Temperature 99.2 F 99.2 F Pulse Rate 84 82 Respiratory 16 16 Rate Blood Pressure 144/89 Blood Pressure 144/89 [Right] O2 Sat by Pulse 97 98 Oximetry - Reevaluation(s) Reevaluation #1: 08/01/18 01:53 Improved ED Medical Decision Making - Medical Decision Making X-ray findings explained to patient, all of his questions were answered, he was advised to follow-up with total. - Differential Diagnosis radius fracture, ulnar fracture. Critical care attestation.: If time is entered above; I have spent that time in minutes in the direct care of this critically ill patient, excluding procedure time. ED Disposition Clinical Impression: Contusion of right forearm Qualifiers: Encounter type: initial encounter Qualified Code(s): S50.11XA - Contusion of right forearm, initial encounter Disposition: - TO HOME OR SELFCARE Is pt being admited?: No Does the pt Need Aspirin: No Condition: Stable Prescriptions: Cyclobenzaprine [Flexeril] 10 mg PO TID PRN #14 tablet PRN Reason: Muscle Spasm Referrals: ELSA PARISI MD [Staff Physician] - 3-5 Days
== END 2018-08-01 02:23 | disposition home or self-care (01) ==
LOC: ED 00:27
DX: S50.11XA Contusion of right forearm, initial encounter (principal); J45.909 Unspecified asthma, uncomplicated; W20.8XXA Other cause of strike by thrown, projected or falling object, initial encounter; Y93.89 Activity, other specified; Y92.89 Other specified places as the place of occurrence of the external cause; Y99.8 Other external cause status
CPT/HCPCS: 99283

== ENCOUNTER 2020-09-03 22:22 | Emergency (ER) | payer SELFPAY ==
[2020-09-03] MEDS ORDERED: IPRATROPIUM 0.02% NEBU 2.5 ML IH ONE ×2 (22:28→22:42)
[2020-09-03] MEDS ORDERED: ALBUTEROL 2.5 MG/3 ML NEBU IH ONE ×2 (22:28→22:42)
[2020-09-03] MEDS ORDERED: predniSONE 20 MG TAB PO ONE (22:42)
--- NOTE | 2020-09-03 22:46 | Emergency Department Report ---
ED Asthma HPI - General Chief Complaint: Dyspnea/Respdistress Stated Complaint: ASTHMA/ DEON PUI?: No Time Seen by Provider: 09/03/20 22:41 Source: patient Mode of arrival: Ambulatory Limitations: No Limitations - History of Present Illness Initial Comments: Chief complaint: Asthma attack HPI: This is a 34-year-old male with history of asthma who presents with cough wheezing shortness of breath for 1 week. He caught a cold from his son. After beginning to cough, wheezing shortness of breath worsened over the past week. He had symptoms in spite using home albuterol. No history of intubations. However he has been hospitalized for asthma. Last hospitalization 2 years ago. He denies fever. Denies chest pain. Denies headache. Denies abdominal pain. According to EMR he has had on average 4 visits per year to the emergency department for asthma treatment. MD Complaint: "asthma attack", shortness of breath, wheezing -: Gradual, week(s) (1) Asthma History: childhood onset, history of frequent attac, history of prior ED visit Severity: moderate Context: recent URI Associated Symptoms: dry cough Treatments Prior to Arrival: inhaled bronchodilator - Related Data Previous Rx's Medication Instructions Recorded Last Taken Type Fluticasone/Salmeterol (Nf) 1 each IH DAILY #1 blst.w.dev 12/17/16 Unknown Rx [Advair 250-50 Diskus (Nf)] Acetaminophen [Acetaminophen TAB] 650 mg PO Q4H PRN #30 tablet 05/21/18 Unknown Rx Albuterol Mdi (or & Nicu Only) 2 puff IH TID PRN #1 each 05/21/18 Unknown Rx [ProAir HFA Inhaler] Ipratropium/Albuterol Sulfate 1 ampul IH BIDRT #1 box 05/21/18 12/14/16 Rx [DUONEB *Not for PRN Use*] Ipratropium/Albuterol Sulfate 1 ampul IH Q6HRT PRN #30 ampul.neb 05/21/18 Unknown Rx [DUONEB *Not for PRN Use*] Montelukast [Singulair] 10 mg PO QPM #30 tablet 05/21/18 Unknown Rx Pantoprazole [Protonix TAB] 40 mg PO QDAY #7 tablet 05/21/18 Unknown Rx Ibuprofen [Motrin] 600 mg PO Q8H PRN #20 tablet 07/28/18 Unknown Rx Cyclobenzaprine [Flexeril] 10 mg PO TID PRN #14 tablet 08/01/18 Unknown Rx ALBUTEROL NEB's [Proventil 0.083% 2.5 mg IH TID PRN #1 box 09/04/20 Unknown Rx NEBS] Albuterol Mdi (or & Nicu Only) 2 puff IH QID PRN #8.5 gram 09/04/20 Unknown Rx [ProAir HFA Inhaler] predniSONE [Deltasone] 3 tab PO QDAY 3 Days #9 tab 09/04/20 Unknown Rx Allergies Allergy/AdvReac Type Severity Reaction Status Date / Time No Known Allergies Allergy Verified 11/16/16 22:51 ED Review of Systems ROS: Stated complaint: ASTHMA/ DEON Other details as noted in HPI Comment: All other systems reviewed and negative Constitutional: denies: fever, malaise Respiratory: cough, shortness of breath, wheezing Cardiovascular: denies: chest pain Gastrointestinal: denies: abdominal pain, nausea, vomiting Skin: denies: lesions ED Past Medical Hx - Past Medical History Previous Medical History?: Yes Hx Hypertension: No Hx CVA: No Hx Heart Attack/AMI: No Hx Congestive Heart Failure: No Hx Diabetes: No Hx Asthma: Yes Hx COPD: No - Surgical History Past Surgical History?: No - Social History Smoking Status: Never Smoker Substance Use Type: None - Medications Home Medications: Home Medications Medication Instructions Recorded Confirmed Last Taken Type Fluticasone/Salmeterol (Nf) 1 each IH DAILY #1 blst.w.dev 12/17/16 05/19/18 Unknown Rx [Advair 250-50 Diskus (Nf)] Acetaminophen [Acetaminophen TAB] 650 mg PO Q4H PRN #30 tablet 05/21/18 Unknown Rx Albuterol Mdi (or & Nicu Only) 2 puff IH TID PRN #1 each 05/21/18 Unknown Rx [ProAir HFA Inhaler] Ipratropium/Albuterol Sulfate 1 ampul IH BIDRT #1 box 05/21/18 05/19/18 12/14/16 Rx [DUONEB *Not for PRN Use*] Ipratropium/Albuterol Sulfate 1 ampul IH Q6HRT PRN #30 ampul.neb 05/21/18 Unknown Rx [DUONEB *Not for PRN Use*] Montelukast [Singulair] 10 mg PO QPM #30 tablet 05/21/18 Unknown Rx Pantoprazole [Protonix TAB] 40 mg PO QDAY #7 tablet 05/21/18 Unknown Rx Ibuprofen [Motrin] 600 mg PO Q8H PRN #20 tablet 07/28/18 Unknown Rx Cyclobenzaprine [Flexeril] 10 mg PO TID PRN #14 tablet 08/01/18 Unknown Rx ALBUTEROL NEB's [Proventil 0.083% 2.5 mg IH TID PRN #1 box 09/04/20 Unknown Rx NEBS] Albuterol Mdi (or & Nicu Only) 2 puff IH QID PRN #8.5 gram 09/04/20 Unknown Rx [ProAir HFA Inhaler] predniSONE [Deltasone] 3 tab PO QDAY 3 Days #9 tab 09/04/20 Unknown Rx ED Physical Exam - General Limitations: No Limitations General appearance: alert, other (Speaking full word sentences with mild work of breathing) - Head Head exam: Present: atraumatic, normocephalic - Eye Eye exam: Present: normal appearance - ENT ENT exam: Present: mucous membranes moist - Neck Neck exam: Present: normal inspection, full ROM - Respiratory Respiratory exam: Present: wheezes, other (Expiratory wheezing). Absent: rales, rhonchi, stridor, prolonged expiratory - Cardiovascular Cardiovascular Exam: Present: regular rate, normal rhythm, normal heart sounds. Absent: systolic murmur, diastolic murmur, rubs, gallop - GI/Abdominal GI/Abdominal exam: Present: soft, normal bowel sounds. Absent: distended, tenderness, guarding, rebound - Rectal Rectal exam: Present: deferred - Extremities Exam Extremities exam: Present: normal inspection - Neurological Exam Neurological exam: Present: alert, oriented X3 - Psychiatric Psychiatric exam: Present: normal affect, normal mood - Skin Skin exam: Present: warm, dry, intact, normal color. Absent: rash ED Course Vital Signs 09/03/20 09/03/20 09/03/20 22:27 22:46 23:00 Temperature 97.8 F Pulse Rate 87 Pulse Rate [ 101 H Bilateral Throughout] Respiratory 26 H Rate Respiratory 22 Rate [Bilateral Throughout] Blood Pressure 135/69 139/67 O2 Sat by Pulse 97 98 Oximetry 09/03/20 09/04/20 23:15 02:12 Temperature Pulse Rate Pulse Rate [ 95 H Bilateral Throughout] Respiratory Rate Respiratory 20 Rate [Bilateral Throughout] Blood Pressure 132/60 O2 Sat by Pulse 99 Oximetry - Reevaluation(s) Reevaluation #1: 09/04/20 00:55 I reevaluated patient. Patient had improved air movement with slight expiratory wheezing. While supine patient's oxygen saturation 94% which is slightly below normal. I have ordered second continuous nebulizer therapy. Reevaluation #2: 09/04/20 03:00 On reexamination, breath sounds clear. Patient speaking full word sentences comfortably. He feels much better. Pulse ox 99% on room air which is normal. ED Medical Decision Making - Medical Decision Making Acute asthma exacerbation: Treated with continuous nebulizer therapy, p.o. steroids. Prescribed albuterol nebulizer therapy as well as albuterol MDI and prednisone burst therapy given referral to outpatient medicine physician. Critical care attestation.: If time is entered above; I have spent that time in minutes in the direct care of this critically ill patient, excluding procedure time. ED Disposition Clinical Impression: Asthma exacerbation Disposition: DC-01 TO HOME OR SELFCARE Is pt being admited?: No Does the pt Need Aspirin: No Condition: Stable Instructions: Asthma, Adult Prescriptions: predniSONE [Deltasone] 3 tab PO QDAY 3 Days #9 tab Albuterol Mdi (or & Nicu Only) [ProAir HFA Inhaler] 2 puff IH QID PRN #8.5 gram PRN Reason: Shortness Of Breath ALBUTEROL NEB's [Proventil 0.083% NEBS] 2.5 mg IH TID PRN #1 box PRN Reason: Wheezing Referrals: BERTIN ORONA MD [Staff Physician] - 3-5 Days
[2020-09-04] MEDS ORDERED: ALBUTEROL 2.5 MG/3 ML NEBU IH ONE (00:54)
[2020-09-04 03:56] VITALS: BP 145/74
== END 2020-09-04 03:25 | disposition home or self-care (01) ==
LOC: ED 22:22
DX: J45.901 Unspecified asthma with (acute) exacerbation (principal); Z79.899 Other long term (current) drug therapy
CPT/HCPCS: 94640; 99283; J7512; 94644

== ENCOUNTER 2020-11-28 19:18 | Emergency (ER) | payer SELFPAY ==
[2020-11-28 19:41] VITALS: BP 117/59
--- NOTE | 2020-11-28 20:09 | Emergency Department Report ---
ED Asthma HPI - General Stated Complaint: ASTHMA PUI?: No Time Seen by Provider: 11/28/20 20:04 Source: patient Limitations: No Limitations - History of Present Illness Initial Comments: 34-year-old Stateless male with known history of asthma presents emerged department complaining of having a flareup due to these cold days and raining. States that he is primarily here for medication refill he has run out of his albuterol nebulizer solution solution and inhaler and requests a refill. Reports no hemoptysis, no hematemesis no hematochezia. No fever, chills, sweats. MD Complaint: "asthma attack", wheezing -: Gradual Asthma History: adult onset Severity: mild Context: recent URI, ran out of meds Associated Symptoms: productive cough Treatments Prior to Arrival: inhaled bronchodilator - Related Data Current Asthma Therapy: inhaled bronchodilator Previous Rx's Medication Instructions Recorded Last Taken Type Fluticasone/Salmeterol (Nf) 1 each IH DAILY #1 blst.w.dev 12/17/16 Unknown Rx [Advair 250-50 Diskus (Nf)] Acetaminophen [Acetaminophen TAB] 650 mg PO Q4H PRN #30 tablet 05/21/18 Unknown Rx Albuterol Mdi (or & Nicu Only) 2 puff IH TID PRN #1 each 05/21/18 Unknown Rx [ProAir HFA Inhaler] Ipratropium/Albuterol Sulfate 1 ampul IH BIDRT #1 box 05/21/18 12/14/16 Rx [DUONEB *Not for PRN Use*] Ipratropium/Albuterol Sulfate 1 ampul IH Q6HRT PRN #30 ampul.neb 05/21/18 Unknown Rx [DUONEB *Not for PRN Use*] Montelukast [Singulair] 10 mg PO QPM #30 tablet 05/21/18 Unknown Rx Pantoprazole [Protonix TAB] 40 mg PO QDAY #7 tablet 05/21/18 Unknown Rx Ibuprofen [Motrin] 600 mg PO Q8H PRN #20 tablet 07/28/18 Unknown Rx Cyclobenzaprine [Flexeril] 10 mg PO TID PRN #14 tablet 08/01/18 Unknown Rx ALBUTEROL NEB's [Proventil 0.083% 2.5 mg IH TID PRN #1 box 09/04/20 Unknown Rx NEBS] Albuterol Mdi (or & Nicu Only) 2 puff IH QID PRN #8.5 gram 09/04/20 Unknown Rx [ProAir HFA Inhaler] predniSONE [Deltasone] 3 tab PO QDAY 3 Days #9 tab 09/04/20 Unknown Rx ALBUTEROL NEB's [Proventil 0.083% 2.5 mg IH TID PRN #30 neb 11/28/20 Unknown Rx NEBS] Albuterol Mdi (or & Nicu Only) 2 puff IH QID PRN #1 inhalation 11/28/20 Unknown Rx [ProAir HFA Inhaler] Montelukast [Singulair] 10 mg PO QPM #14 tablet 11/28/20 Unknown Rx predniSONE [Deltasone] 20 mg PO QDAY #5 tab 11/28/20 Unknown Rx Allergies Allergy/AdvReac Type Severity Reaction Status Date / Time No Known Allergies Allergy Verified 11/16/16 22:51 ED Review of Systems ROS: Stated complaint: ASTHMA Other details as noted in HPI Comment: All other systems reviewed and negative ED Past Medical Hx - Past Medical History Hx Hypertension: No Hx CVA: No Hx Heart Attack/AMI: No Hx Congestive Heart Failure: No Hx Diabetes: No Hx Asthma: Yes Hx COPD: No - Social History Smoking Status: Never Smoker Substance Use Type: None - Medications Home Medications: Home Medications Medication Instructions Recorded Confirmed Last Taken Type Fluticasone/Salmeterol (Nf) 1 each IH DAILY #1 blst.w.dev 12/17/16 05/19/18 Unknown Rx [Advair 250-50 Diskus (Nf)] Acetaminophen [Acetaminophen TAB] 650 mg PO Q4H PRN #30 tablet 05/21/18 Unknown Rx Albuterol Mdi (or & Nicu Only) 2 puff IH TID PRN #1 each 05/21/18 Unknown Rx [ProAir HFA Inhaler] Ipratropium/Albuterol Sulfate 1 ampul IH BIDRT #1 box 05/21/18 05/19/18 12/14/16 Rx [DUONEB *Not for PRN Use*] Ipratropium/Albuterol Sulfate 1 ampul IH Q6HRT PRN #30 ampul.neb 05/21/18 Unknown Rx [DUONEB *Not for PRN Use*] Montelukast [Singulair] 10 mg PO QPM #30 tablet 05/21/18 Unknown Rx Pantoprazole [Protonix TAB] 40 mg PO QDAY #7 tablet 05/21/18 Unknown Rx Ibuprofen [Motrin] 600 mg PO Q8H PRN #20 tablet 07/28/18 Unknown Rx Cyclobenzaprine [Flexeril] 10 mg PO TID PRN #14 tablet 08/01/18 Unknown Rx ALBUTEROL NEB's [Proventil 0.083% 2.5 mg IH TID PRN #1 box 09/04/20 Unknown Rx NEBS] Albuterol Mdi (or & Nicu Only) 2 puff IH QID PRN #8.5 gram 09/04/20 Unknown Rx [ProAir HFA Inhaler] predniSONE [Deltasone] 3 tab PO QDAY 3 Days #9 tab 09/04/20 Unknown Rx ALBUTEROL NEB's [Proventil 0.083% 2.5 mg IH TID PRN #30 neb 11/28/20 Unknown Rx NEBS] Albuterol Mdi (or & Nicu Only) 2 puff IH QID PRN #1 inhalation 11/28/20 Unknown Rx [ProAir HFA Inhaler] Montelukast [Singulair] 10 mg PO QPM #14 tablet 11/28/20 Unknown Rx predniSONE [Deltasone] 20 mg PO QDAY #5 tab 11/28/20 Unknown Rx ED Physical Exam - General General appearance: alert, in no apparent distress - Head Head exam: Present: atraumatic, normocephalic - Eye Eye exam: Present: normal appearance, PERRL, EOMI. Absent: scleral icterus - ENT ENT exam: Present: normal exam, normal orophraynx, mucous membranes moist, other - Neck Neck exam: Present: normal inspection - Respiratory Respiratory exam: Present: normal lung sounds bilaterally, other (Coarse breath sounds but no wheezes or rhonchi). Absent: respiratory distress, rales, rhonchi, chest wall tenderness, decreased breath sounds, prolonged expiratory - Cardiovascular Cardiovascular Exam: Present: regular rate, normal rhythm. Absent: systolic murmur, diastolic murmur, rubs, gallop - GI/Abdominal GI/Abdominal exam: Present: soft, normal bowel sounds - Rectal Rectal exam: Present: deferred - Extremities Exam Extremities exam: Present: normal inspection - Back Exam Back exam: Present: normal inspection - Neurological Exam Neurological exam: Present: alert, oriented X3 - Psychiatric Psychiatric exam: Present: normal affect, normal mood - Skin Skin exam: Present: warm, dry, intact, normal color. Absent: rash ED Course Vital Signs 11/28/20 19:40 Temperature 99.2 F Pulse Rate 68 Respiratory 18 Rate Blood Pressure 117/59 [Left] O2 Sat by Pulse 96 Oximetry ED Medical Decision Making - Medical Decision Making This patient presents with acute cough, most consistent with asthma. Differential diagnosis includes asthma, bronchitis, hyperreactive airway disease,. Presentation not consistent with acute bacterial pneumonia, influenza, asthma, transient airway hyperresponsiveness. Presentation not consistent with chronic causes of cough (including GERD, asthma, postnasal discharge, medication side effect, CHF, lung cancer or mass). Plan: , supportive care, reassess Critical care attestation.: If time is entered above; I have spent that time in minutes in the direct care of this critically ill patient, excluding procedure time. ED Disposition Clinical Impression: Asthma exacerbation Disposition: DC-01 TO HOME OR SELFCARE Is pt being admited?: No Does the pt Need Aspirin: No Instructions: Asthma, Adult, Bronchospasm, Adult, How to Use a Nebulizer, Ad ult, How to Use a Metered Dose Inhaler, Peak Flow Meter Prescriptions: predniSONE [Deltasone] 20 mg PO QDAY #5 tab Albuterol Mdi (or & Nicu Only) [ProAir HFA Inhaler] 2 puff IH QID PRN #1 inhalation PRN Reason: Shortness Of Breath ALBUTEROL NEB's [Proventil 0.083% NEBS] 2.5 mg IH TID PRN #30 neb PRN Reason: Wheezing Montelukast [Singulair] 10 mg PO QPM #14 tablet Referrals: PRIMARY CARE, [Primary Care Provider] - 3-5 Days [facility] [Provider Group] - 3-5 Days
== END 2020-11-28 20:48 | disposition home or self-care (01) ==
LOC: ED 19:18
DX: J45.901 Unspecified asthma with (acute) exacerbation (principal); J45.909 Unspecified asthma, uncomplicated; Z79.899 Other long term (current) drug therapy
CPT/HCPCS: 99282

== ENCOUNTER 2021-02-27 20:26 | Emergency (ER) | payer SELFPAY ==
[2021-02-27 22:19] VITALS: BP 119/75
--- NOTE | 2021-02-27 22:37 | Emergency Department Report ---
ED Asthma HPI - General Chief Complaint: Dyspnea/Respdistress Stated Complaint: ASTHMA Time Seen by Provider: 02/27/21 22:33 Source: patient Mode of arrival: Ambulatory Limitations: No Limitations - History of Present Illness Initial Comments: 35-year-old Mauritian male past no history of asthma this female department complaining of running out of his medications and having of small asthma flareup which he had utilize less of his inhaler to Advair. States that it definitely visible on this time but he has been unable to get in and would have to follow- up with his doctor. Ports no fever, chills, sweats per hemoptysis no hematemesis, hematochezia. No chest pain, no palpitations. - Related Data Previous Rx's Medication Instructions Recorded Last Taken Type Fluticasone/Salmeterol (Nf) 1 each IH DAILY #1 blst.w.dev 12/17/16 Unknown Rx [Advair 250-50 Diskus (Nf)] Acetaminophen [Acetaminophen TAB] 650 mg PO Q4H PRN #30 tablet 05/21/18 Unknown Rx Albuterol Mdi (or & Nicu Only) 2 puff IH TID PRN #1 each 05/21/18 Unknown Rx [ProAir HFA Inhaler] Ipratropium/Albuterol Sulfate 1 ampul IH BIDRT #1 box 05/21/18 12/14/16 Rx [DUONEB *Not for PRN Use*] Ipratropium/Albuterol Sulfate 1 ampul IH Q6HRT PRN #30 ampul.neb 05/21/18 Unknown Rx [DUONEB *Not for PRN Use*] Montelukast [Singulair] 10 mg PO QPM #30 tablet 05/21/18 Unknown Rx Pantoprazole [Protonix TAB] 40 mg PO QDAY #7 tablet 05/21/18 Unknown Rx Ibuprofen [Motrin] 600 mg PO Q8H PRN #20 tablet 07/28/18 Unknown Rx Cyclobenzaprine [Flexeril] 10 mg PO TID PRN #14 tablet 08/01/18 Unknown Rx ALBUTEROL NEB's [Proventil 0.083% 2.5 mg IH TID PRN #1 box 09/04/20 Unknown Rx NEBS] Albuterol Mdi (or & Nicu Only) 2 puff IH QID PRN #8.5 gram 09/04/20 Unknown Rx [ProAir HFA Inhaler] predniSONE [Deltasone] 3 tab PO QDAY 3 Days #9 tab 09/04/20 Unknown Rx ALBUTEROL NEB's [Proventil 0.083% 2.5 mg IH TID PRN #30 neb 11/28/20 Unknown Rx NEBS] Albuterol Mdi (or & Nicu Only) 2 puff IH QID PRN #1 inhalation 11/28/20 Unknown Rx [ProAir HFA Inhaler] Montelukast [Singulair] 10 mg PO QPM #14 tablet 11/28/20 Unknown Rx predniSONE [Deltasone] 20 mg PO QDAY #5 tab 11/28/20 Unknown Rx ALBUTEROL NEB's [Proventil 0.083% 2.5 mg IH TID PRN #30 neb 02/27/21 Unknown Rx NEBS] Albuterol Mdi (or & Nicu Only) 1 puff IH Q4-6H PRN #1 inha 02/27/21 Unknown Rx [ProAir HFA Inhaler] Benzonatate [Tessalon Perles] 100 mg PO Q8HR #20 capsule 02/27/21 Unknown Rx Fluticasone/Salmeterol [Advair 1 each IH BID #1 blst.w.dev 02/27/21 Unknown Rx 250-50 Diskus] Montelukast [Singulair] 10 mg PO QPM #14 tablet 02/27/21 Unknown Rx predniSONE [Deltasone] 50 mg PO QDAY #5 tab 02/27/21 Unknown Rx Allergies Allergy/AdvReac Type Severity Reaction Status Date / Time No Known Allergies Allergy Verified 02/27/21 22:17 ED Review of Systems ROS: Stated complaint: ASTHMA Other details as noted in HPI Comment: All other systems reviewed and negative ED Past Medical Hx - Past Medical History Hx Hypertension: No Hx CVA: No Hx Heart Attack/AMI: No Hx Congestive Heart Failure: No Hx Diabetes: No Hx Asthma: Yes Hx COPD: No - Surgical History Past Surgical History?: No - Social History Smoking Status: Never Smoker Substance Use Type: None - Medications Home Medications: Home Medications Medication Instructions Recorded Confirmed Last Taken Type Fluticasone/Salmeterol (Nf) 1 each IH DAILY #1 blst.w.dev 12/17/16 05/19/18 Unknown Rx [Advair 250-50 Diskus (Nf)] Acetaminophen [Acetaminophen TAB] 650 mg PO Q4H PRN #30 tablet 05/21/18 Unknown Rx Albuterol Mdi (or & Nicu Only) 2 puff IH TID PRN #1 each 05/21/18 Unknown Rx [ProAir HFA Inhaler] Ipratropium/Albuterol Sulfate 1 ampul IH BIDRT #1 box 05/21/18 05/19/18 12/14/16 Rx [DUONEB *Not for PRN Use*] Ipratropium/Albuterol Sulfate 1 ampul IH Q6HRT PRN #30 ampul.neb 05/21/18 Unknown Rx [DUONEB *Not for PRN Use*] Montelukast [Singulair] 10 mg PO QPM #30 tablet 05/21/18 Unknown Rx Pantoprazole [Protonix TAB] 40 mg PO QDAY #7 tablet 05/21/18 Unknown Rx Ibuprofen [Motrin] 600 mg PO Q8H PRN #20 tablet 07/28/18 Unknown Rx Cyclobenzaprine [Flexeril] 10 mg PO TID PRN #14 tablet 08/01/18 Unknown Rx ALBUTEROL NEB's [Proventil 0.083% 2.5 mg IH TID PRN #1 box 09/04/20 Unknown Rx NEBS] Albuterol Mdi (or & Nicu Only) 2 puff IH QID PRN #8.5 gram 09/04/20 Unknown Rx [ProAir HFA Inhaler] predniSONE [Deltasone] 3 tab PO QDAY 3 Days #9 tab 09/04/20 Unknown Rx ALBUTEROL NEB's [Proventil 0.083% 2.5 mg IH TID PRN #30 neb 11/28/20 Unknown Rx NEBS] Albuterol Mdi (or & Nicu Only) 2 puff IH QID PRN #1 inhalation 11/28/20 Unknown Rx [ProAir HFA Inhaler] Montelukast [Singulair] 10 mg PO QPM #14 tablet 11/28/20 Unknown Rx predniSONE [Deltasone] 20 mg PO QDAY #5 tab 11/28/20 Unknown Rx ALBUTEROL NEB's [Proventil 0.083% 2.5 mg IH TID PRN #30 neb 02/27/21 Unknown Rx NEBS] Albuterol Mdi (or & Nicu Only) 1 puff IH Q4-6H PRN #1 inha 02/27/21 Unknown Rx [ProAir HFA Inhaler] Benzonatate [Tessalon Perles] 100 mg PO Q8HR #20 capsule 02/27/21 Unknown Rx Fluticasone/Salmeterol [Advair 1 each IH BID #1 blst.w.dev 02/27/21 Unknown Rx 250-50 Diskus] Montelukast [Singulair] 10 mg PO QPM #14 tablet 02/27/21 Unknown Rx predniSONE [Deltasone] 50 mg PO QDAY #5 tab 02/27/21 Unknown Rx ED Physical Exam - General Limitations: No Limitations General appearance: alert, in no apparent distress - Head Head exam: Present: atraumatic, normocephalic - Eye Eye exam: Present: normal appearance, PERRL, EOMI Pupils: Present: normal accommodation - ENT ENT exam: Present: normal exam, mucous membranes moist - Neck Neck exam: Present: normal inspection - Respiratory Respiratory exam: Present: normal lung sounds bilaterally. Absent: respiratory distress, chest wall tenderness, accessory muscle use - Cardiovascular Cardiovascular Exam: Present: regular rate, normal rhythm. Absent: systolic murmur, diastolic murmur, rubs, gallop - GI/Abdominal GI/Abdominal exam: Present: soft, normal bowel sounds - Rectal Rectal exam: Present: deferred - Extremities Exam Extremities exam: Present: normal inspection - Back Exam Back exam: Present: normal inspection - Neurological Exam Neurological exam: Present: alert, oriented X3 - Psychiatric Psychiatric exam: Present: normal affect, normal mood - Skin Skin exam: Present: warm, dry, intact, normal color. Absent: rash ED Course Vital Signs 02/27/21 21:44 Temperature 98.6 F Pulse Rate 82 Respiratory 18 Rate Blood Pressure 119/75 O2 Sat by Pulse 97 Oximetry ED Medical Decision Making - Medical Decision Making No altered mental status, saddle respirations, belly breathing or other signs of impending ventilatory failure. No intubations or recent admissions to the hospital for asthma. Unlikely pneumonia, CHF, COPD, GERD Workup Review include a chest x-ray which was normal she also received steroids and albuterol Therapies: None needed at this time the patient states his breathing is okay but he does request refills of his medications that he is out of Reassessment: Patient improved with albuterol and ipratropium in less than 3 hours. Disposition: Discharge home with return precautions. Advised to follow up with primary care physician within next 24-48 hours. Aside from this acute exacerbation patient has been well controlled on baseline home regimen. Rx short steroid course, albuterol, Singulair, Flovent Critical care attestation.: If time is entered above; I have spent that time in minutes in the direct care of this critically ill patient, excluding procedure time. ED Disposition Clinical Impression: Asthma exacerbation Disposition: DC- TO HOME OR SELFCARE Is pt being admited?: No Does the pt Need Aspirin: No Condition: Stable Prescriptions: Fluticasone/Salmeterol [Advair 250-50 Diskus] 1 each IH BID #1 blst.w.dev predniSONE [Deltasone] 50 mg PO QDAY #5 tab Albuterol Mdi (or & Nicu Only) [ProAir HFA Inhaler] 1 puff IH Q4-6H PRN #1 inha PRN Reason: Cough ALBUTEROL NEB's [Proventil 0.083% NEBS] 2.5 mg IH TID PRN #30 neb PRN Reason: Wheezing Montelukast [Singulair] 10 mg PO QPM #14 tablet Benzonatate [Tessalon Perles] 100 mg PO Q8HR #20 capsule Referrals: PRIMARY CARE, [Primary Care Provider] - 3-5 Days
== END 2021-02-27 23:05 | disposition home or self-care (01) ==
LOC: ED 20:26
DX: J45.901 Unspecified asthma with (acute) exacerbation (principal); Z79.899 Other long term (current) drug therapy
CPT/HCPCS: 99282

== ENCOUNTER 2021-06-10 17:11 | Emergency (ER) | payer SELFPAY ==
[2021-06-10 20:11] VITALS: BP 149/88
== END 2021-06-10 21:30 | disposition home or self-care (01) ==
LOC: ED 17:11
DX: K02.9 Dental caries, unspecified (principal); K04.7 Periapical abscess without sinus; J45.909 Unspecified asthma, uncomplicated; Z79.899 Other long term (current) drug therapy
CPT/HCPCS: 99282

== ENCOUNTER 2021-07-02 02:40 | Emergency (ER) | payer SELFPAY ==
[2021-07-02 04:57] VITALS: BP 117/75
[2021-07-02] MEDS ORDERED: ALBUTEROL 2.5 MG/3 ML NEBU IH ONE (05:18)
[2021-07-02] MEDS ORDERED: IPRATROPIUM 0.02% NEBU 2.5 ML IH ONE (05:18)
[2021-07-02] MEDS ORDERED: BUDESONIDE 0.5 MG/2 ML NEBU IH ONE (05:19)
--- NOTE | 2021-07-02 05:21 | Emergency Department Report ---
<PEÑA RO - Last Filed: 07/02/21 08:56> ED General Adult HPI - General Chief complaint: Adult Asthma Stated complaint: ASTHMA - Related Data Previous Rx's Medication Instructions Recorded Last Taken Type Fluticasone/Salmeterol (Nf) 1 each IH DAILY #1 blst.w.dev 12/17/16 Unknown Rx [Advair 250-50 Diskus (Nf)] Acetaminophen [Acetaminophen TAB] 650 mg PO Q4H PRN #30 tablet 05/21/18 Unknown Rx Albuterol Mdi (or & Nicu Only) 2 puff IH TID PRN #1 each 05/21/18 Unknown Rx [ProAir HFA Inhaler] Ipratropium/Albuterol Sulfate 1 ampul IH BIDRT #1 box 05/21/18 12/14/16 Rx [DUONEB *Not for PRN Use*] Ipratropium/Albuterol Sulfate 1 ampul IH Q6HRT PRN #30 ampul.neb 05/21/18 Unknown Rx [DUONEB *Not for PRN Use*] Montelukast [Singulair] 10 mg PO QPM #30 tablet 05/21/18 Unknown Rx Pantoprazole [Protonix TAB] 40 mg PO QDAY #7 tablet 05/21/18 Unknown Rx ALBUTEROL NEB's [Proventil 0.083% 2.5 mg IH TID PRN #1 box 09/04/20 Unknown Rx NEBS] Albuterol Mdi (or & Nicu Only) 2 puff IH QID PRN #8.5 gram 09/04/20 Unknown Rx [ProAir HFA Inhaler] predniSONE [Deltasone] 3 tab PO QDAY 3 Days #9 tab 09/04/20 Unknown Rx ALBUTEROL NEB's [Proventil 0.083% 2.5 mg IH TID PRN #30 neb 11/28/20 Unknown Rx NEBS] Albuterol Mdi (or & Nicu Only) 2 puff IH QID PRN #1 inhalation 11/28/20 Unknown Rx [ProAir HFA Inhaler] Montelukast [Singulair] 10 mg PO QPM #14 tablet 11/28/20 Unknown Rx predniSONE [Deltasone] 20 mg PO QDAY #5 tab 11/28/20 Unknown Rx ALBUTEROL NEB's [Proventil 0.083% 2.5 mg IH TID PRN #30 neb 02/27/21 Unknown Rx NEBS] Albuterol Mdi (or & Nicu Only) 1 puff IH Q4-6H PRN #1 inha 02/27/21 Unknown Rx [ProAir HFA Inhaler] Fluticasone/Salmeterol [Advair 1 each IH BID #1 blst.w.dev 02/27/21 Unknown Rx 250-50 Diskus] Montelukast [Singulair] 10 mg PO QPM #14 tablet 02/27/21 Unknown Rx predniSONE [Deltasone] 50 mg PO QDAY #5 tab 02/27/21 Unknown Rx Acetaminophen/Codeine [Tylenol 1 tab PO Q6H PRN #12 tab 06/10/21 Unknown Rx /Codeine # 3 tab] Ibuprofen [Motrin 600 MG tab] 600 mg PO Q8H PRN #20 tablet 06/10/21 Unknown Rx Penicillin V Potassium 500 mg PO Q6HR #40 tablet 06/10/21 Unknown Rx Albuterol Sulfate [Proair 90 mcg IH Q4H PRN #1 aer.pw.bas 07/02/21 Unknown Rx Digihaler] predniSONE [Deltasone] 20 mg PO QDAY #5 tab 07/02/21 Unknown Rx Allergies Allergy/AdvReac Type Severity Reaction Status Date / Time No Known Allergies Allergy Verified 02/27/21 22:17 ED Past Medical Hx - Medications Home Medications: Home Medications Medication Instructions Recorded Confirmed Last Taken Type Fluticasone/Salmeterol (Nf) 1 each IH DAILY #1 blst.w.dev 12/17/16 05/19/18 Unknown Rx [Advair 250-50 Diskus (Nf)] Acetaminophen [Acetaminophen TAB] 650 mg PO Q4H PRN #30 tablet 05/21/18 Unknown Rx Albuterol Mdi (or & Nicu Only) 2 puff IH TID PRN #1 each 05/21/18 Unknown Rx [ProAir HFA Inhaler] Ipratropium/Albuterol Sulfate 1 ampul IH BIDRT #1 box 05/21/18 05/19/18 12/14/16 Rx [DUONEB *Not for PRN Use*] Ipratropium/Albuterol Sulfate 1 ampul IH Q6HRT PRN #30 ampul.neb 05/21/18 Unknown Rx [DUONEB *Not for PRN Use*] Montelukast [Singulair] 10 mg PO QPM #30 tablet 05/21/18 Unknown Rx Pantoprazole [Protonix TAB] 40 mg PO QDAY #7 tablet 05/21/18 Unknown Rx ALBUTEROL NEB's [Proventil 0.083% 2.5 mg IH TID PRN #1 box 09/04/20 Unknown Rx NEBS] Albuterol Mdi (or & Nicu Only) 2 puff IH QID PRN #8.5 gram 09/04/20 Unknown Rx [ProAir HFA Inhaler] predniSONE [Deltasone] 3 tab PO QDAY 3 Days #9 tab 09/04/20 Unknown Rx ALBUTEROL NEB's [Proventil 0.083% 2.5 mg IH TID PRN #30 neb 11/28/20 Unknown Rx NEBS] Albuterol Mdi (or & Nicu Only) 2 puff IH QID PRN #1 inhalation 11/28/20 Unknown Rx [ProAir HFA Inhaler] Montelukast [Singulair] 10 mg PO QPM #14 tablet 11/28/20 Unknown Rx predniSONE [Deltasone] 20 mg PO QDAY #5 tab 11/28/20 Unknown Rx ALBUTEROL NEB's [Proventil 0.083% 2.5 mg IH TID PRN #30 neb 02/27/21 Unknown Rx NEBS] Albuterol Mdi (or & Nicu Only) 1 puff IH Q4-6H PRN #1 inha 02/27/21 Unknown Rx [ProAir HFA Inhaler] Fluticasone/Salmeterol [Advair 1 each IH BID #1 blst.w.dev 02/27/21 Unknown Rx 250-50 Diskus] Montelukast [Singulair] 10 mg PO QPM #14 tablet 02/27/21 Unknown Rx predniSONE [Deltasone] 50 mg PO QDAY #5 tab 02/27/21 Unknown Rx Acetaminophen/Codeine [Tylenol 1 tab PO Q6H PRN #12 tab 06/10/21 Unknown Rx /Codeine # 3 tab] Ibuprofen [Motrin 600 MG tab] 600 mg PO Q8H PRN #20 tablet 06/10/21 Unknown Rx Penicillin V Potassium 500 mg PO Q6HR #40 tablet 06/10/21 Unknown Rx Albuterol Sulfate [Proair 90 mcg IH Q4H PRN #1 aer.pw.bas 07/02/21 Unknown Rx Digihaler] predniSONE [Deltasone] 20 mg PO QDAY #5 tab 07/02/21 Unknown Rx ED Medical Decision Making - Radiology Data [facility] [address] [place] [address] XRay Report Signed Patient: AUNDREA BARBOSA MR #: [id number] : 1985 Acct:[id number] Age/Sex: 35 / M ADM Date: 07/02/21 Loc: ED Attending Dr: Ordering Physician: JANELLE GRAVES Date of Service: 07/02/21 Procedure(s): XR chest 1V ap Accession Number(s): [id number] cc: JANELLE GRAVES Fluoro Time In Minutes: CHEST 1 VIEW INDICATION: cough, hx asthma, + sick contact. COMPARISON: None. FINDINGS: Support devices: None. Heart: Normal. Lungs/Pleura: No acute pulmonary or pleural findings. IMPRESSION: 1. No acute findings. Signer Name: John Beltran MD Signed: 07/02/2021 7:04 AM Workstation Name: [id number] Transcribed By: Dictated By: John Beltran MD Electronically Authenticated By: John Beltran MD Signed Date/Time: 07/02/21703 DD/ 3 TD/TT: - Medical Decision Making 35-year-old male that presents with asthma exacerbation. Patient originally see n by JANELLE Mendes and was signed out to nd for pending chest x-ray. Chest x-ray has been obtained and dictated by the radiologist within normal limits. Patient is notified of the x-ray report with no questions noted by the patient. He received treatment by JANELLE Fam. Posttreatment: patient the symptoms has resolved and subsided and there is no wheezing upon auscultation. Patient is discharged with medications and discharge packet provided by JANELLE Fam. Patient was referred to Follow-up with a primary care doctor in 3-5 days or if symptoms worsen and continue return to emergency room as soon as possible. At time of discharge, the patient does not seem toxic or ill in appearance. No acute signs of distress noted. Patient agrees to discharge treatment plan of care. No further questions noted by the patient. This chart is dictated with using [employer] Dictation Program ED Disposition Clinical Impression: Asthma exacerbation Qualifiers: Asthma severity: unspecified severity Asthma persistence: unspecified Qualified Code(s): J45.901 - Unspecified asthma with (acute) exacerbation Disposition: HOME / SELF CARE / HOMELESS Condition: Stable Instructions: Asthma, Adult, [id number] Additional Instructions: Use Albuterol as directed. Take Prednisone with food as directed. Avoid environmental triggers, which may worsen your asthma. Follow-up with your primary care provider this week. Call Saturday to schedule appointment. Return to the emergency department immediately for new or worsening symptoms. Prescriptions: predniSONE [Deltasone] 20 mg PO QDAY #5 tab Albuterol Sulfate [Proair Digihaler] 90 mcg IH Q4H PRN #1 aer.pw.bas PRN Reason: Wheezing Referrals: BERTIN ORONA MD [Staff Physician] - 3-5 Days [facility] [Provider Group] - 3-5 Days Time of Disposition: 07:57 <KENN FAM - Last Filed: 07/03/21 19:35> ED General Adult HPI - General Source: patient Mode of arrival: Ambulatory Limitations: No Limitations - History of Present Illness Initial comments: 35-year-old male patient with history of asthma presents emergency department with complaints of sore throat, cough, wheezing, and shortness of breath starting 5 days ago. Patient's son was recently exhibiting similar symptoms. Patient's son improved with nebulizer treatments. Patient has been using his inhaler and his nebulizers with limited relief. Patient did not receive his COVID-19 vaccination series. Patient has been hospitalized for his asthma on prior occasions. He has never required intubation. Denies fever, chills, chest pain, palpitations, syncope, vomiting. Denies all other complaints at this time. ED Review of Systems ROS: Stated complaint: ASTHMA Other details as noted in HPI Other: GENERAL: Negative for fever, chills, weight change, anorexia, fatigue. ENT: Positive for sore throat. CARDIOVASCULAR: Negative for chest pain, palpitations, lower extremity swelling. PULMONARY: Positive for cough, wheezing, shortness of breath GASTROINTESTINAL: Negative for abdominal pain, nausea, vomiting, diarrhea, constipation. MUSCULOSKELETAL: Negative for joint pain, joint swelling, myalgias, back pain, neck pain. NEUROLOGICAL: Negative for headache, seizure, syncope, paresthesias, weakness. INTEGUMENTARY: Negative for erythema, rash, diaphoresis, laceration, ecchymosis. HEMATOLOGICAL: Negative for hemoptysis, hematemesis, hematochezia, hematuria. PSYCHIATRIC: Negative for hallucinations, suicidal ideation, homicidal ideation, anxiety, depression. ED Past Medical Hx - Past Medical History Hx Hypertension: No Hx CVA: No Hx Heart Attack/AMI: No Hx Congestive Heart Failure: No Hx Diabetes: No Hx Asthma: Yes Hx COPD: No - Social History Smoking Status: Never Smoker Substance Use Type: None ED Physical Exam - General Limitations: No Limitations - Other Other exam information: General: Awake and alert. No acute distress. Head: Atraumatic, normocephalic. Eyes: EOMI. Pupils are equal and round. Normal sclera and conjunctiva. ENT: Oral mucosa is moist. Mild pharyngeal erythema without tonsillar swelling or exudate. Uvula is midline and nonedematous. No voice changes. Neck: Supple. No lymphadenopathy. Pulmonary: No respiratory distress. Diffuse expiratory wheezing bilaterally. No rhonchi or stridor. Cardiac: Regular rate and rhythm. Pulses are palpable and equal bilaterally. No lower extremity cyanosis or edema. Skin: Warm and dry. No rashes. Abdomen: Soft, non-tender, non-protuberant. No guarding, rigidity, or rebound. Bowel sounds are normal. No organomegaly or masses noted. Back: Normal alignment. No CVA tenderness. Extremities: Symmetrical. Full range of motion intact. Neurological: Alert and oriented, appropriately interactive, no focal deficits. Psych: Cooperative. Appropriate mood and affect. Speech is evenly metered. Thoughts are logically construed. ED Course Vital Signs 07/02/21 07/02/21 04:00 05:40 Temperature 98.0 F Pulse Rate 80 Pulse Rate [ 83 Bilateral Throughout] Respiratory 18 Rate Respiratory 20 Rate [Bilateral Throughout] Blood Pressure 117/75 O2 Sat by Pulse 96 Oximetry ED Medical Decision Making - Medical Decision Making Differential diagnosis including but not limited to: pneumonia, asthma exacerbation, influenza, pertussis, pleural effusion, viral upper respiratory infection Care of patient transferred to Peña Ro NP for further evaluation and final disposition pending chest x-ray results and breathing treatment. Critical care attestation.: If time is entered above; I have spent that time in minutes in the direct care of this critically ill patient, excluding procedure time. ED Disposition Is pt being admited?: No Does the pt Need Aspirin: No
--- NOTE | 2021-07-02 07:08 | XRay Report ---
CHEST 1 VIEW INDICATION: cough, hx asthma, + sick contact. COMPARISON: None. FINDINGS: Support devices: None. Heart: Normal. Lungs/Pleura: No acute pulmonary or pleural findings. IMPRESSION: 1. No acute findings. Signer Name: John Beltran MD Signed: 07/02/2021 7:04 AM Workstation Name: [id number]
== END 2021-07-02 08:00 | disposition home or self-care (01) ==
LOC: ED 02:40
DX: J45.901 Unspecified asthma with (acute) exacerbation (principal); Z79.899 Other long term (current) drug therapy
CPT/HCPCS: 71045; 94640; 94644; 99283

== ENCOUNTER 2022-01-01 11:09 | Emergency (ER) | payer OTHER ==
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
[2022-01-01 14:02] VITALS: BP 120/75
== END 2022-01-01 14:01 | disposition home or self-care (01) ==
LOC: ED 11:09
DX: S16.1XXA Strain of muscle, fascia and tendon at neck level, initial encounter (principal); S40.022A Contusion of left upper arm, initial encounter; S40.021A Contusion of right upper arm, initial encounter; S50.12XA Contusion of left forearm, initial encounter; S30.1XXA Contusion of abdominal wall, initial encounter; S09.90XA Unspecified injury of head, initial encounter; J45.909 Unspecified asthma, uncomplicated; Z79.899 Other long term (current) drug therapy; Y04.8XXA Assault by other bodily force, initial encounter; Y93.89 Activity, other specified; Y92.89 Other specified places as the place of occurrence of the external cause; Y99.8 Other external cause status
CPT/HCPCS: 99282

== ENCOUNTER 2022-04-25 11:16 | Emergency (ER) | payer SELFPAY ==
[2022-04-25 11:41] VITALS: BP 132/75
--- NOTE | 2022-04-25 12:49 | Emergency Department Report ---
ED General Adult HPI - General Chief complaint: Recheck/Abnormal Lab/Rx Stated complaint: ASTHMA Source: patient Mode of arrival: Ambulatory Limitations: No Limitations - History of Present Illness Initial comments: 36-year-old male history of asthma reports to the ER today for medication refill of his albuterol inhaler as he is currently out with only 0 remaining pulse. Patient reports reports his last usage was 2 days ago. Patient reports that he has an upcoming appointment for next Saturday with his primary care as that is the earliest that he can be seen. Patient denies any acute symptoms no chest pain, no shortness of breath, no respiratory distress. - Related Data Previous Rx's Medication Instructions Recorded Last Taken Type Fluticasone/Salmeterol (Nf) 1 each IH DAILY #1 blst.w.dev 12/17/16 Unknown Rx [Advair 250-50 Diskus (Nf)] Acetaminophen [Acetaminophen TAB] 650 mg PO Q4H PRN #30 tablet 05/21/18 Unknown Rx Albuterol Mdi (or & Nicu Only) 2 puff IH TID PRN #1 each 05/21/18 Unknown Rx [ProAir HFA Inhaler] Ipratropium/Albuterol Sulfate 1 ampul IH BIDRT #1 box 05/21/18 12/14/16 Rx [DUONEB *Not for PRN Use*] Ipratropium/Albuterol Sulfate 1 ampul IH Q6HRT PRN #30 ampul.neb 05/21/18 Unknown Rx [DUONEB *Not for PRN Use*] Montelukast [Singulair] 10 mg PO QPM #30 tablet 05/21/18 Unknown Rx Pantoprazole [Protonix TAB] 40 mg PO QDAY #7 tablet 05/21/18 Unknown Rx ALBUTEROL NEB's [Proventil 0.083% 2.5 mg IH TID PRN #1 box 09/04/20 Unknown Rx NEBS] Albuterol Mdi (or & Nicu Only) 2 puff IH QID PRN #8.5 gram 09/04/20 Unknown Rx [ProAir HFA Inhaler] predniSONE [Deltasone] 3 tab PO QDAY 3 Days #9 tab 09/04/20 Unknown Rx ALBUTEROL NEB's [Proventil 0.083% 2.5 mg IH TID PRN #30 neb 11/28/20 Unknown Rx NEBS] Albuterol Mdi (or & Nicu Only) 2 puff IH QID PRN #1 inhalation 11/28/20 Unknown Rx [ProAir HFA Inhaler] Montelukast [Singulair] 10 mg PO QPM #14 tablet 11/28/20 Unknown Rx predniSONE [Deltasone] 20 mg PO QDAY #5 tab 11/28/20 Unknown Rx ALBUTEROL NEB's [Proventil 0.083% 2.5 mg IH TID PRN #30 neb 02/27/21 Unknown Rx NEBS] Albuterol Mdi (or & Nicu Only) 1 puff IH Q4-6H PRN #1 inha 02/27/21 Unknown Rx [ProAir HFA Inhaler] Fluticasone/Salmeterol [Advair 1 each IH BID #1 blst.w.dev 02/27/21 Unknown Rx 250-50 Diskus] Montelukast [Singulair] 10 mg PO QPM #14 tablet 02/27/21 Unknown Rx predniSONE [Deltasone] 50 mg PO QDAY #5 tab 02/27/21 Unknown Rx Acetaminophen/Codeine [Tylenol 1 tab PO Q6H PRN #12 tab 06/10/21 Unknown Rx /Codeine # 3 tab] Penicillin V Potassium 500 mg PO Q6HR #40 tablet 06/10/21 Unknown Rx Albuterol Sulfate [Proair 90 mcg IH Q4H PRN #1 aer.pw.bas 07/02/21 Unknown Rx Digihaler] predniSONE [Deltasone] 20 mg PO QDAY #5 tab 07/02/21 Unknown Rx Ibuprofen [Motrin 600 MG tab] 600 mg PO Q8H PRN #20 tablet 01/01/22 Unknown Rx Albuterol Mdi (or & Nicu Only) 2 puff IH Q4HR PRN 30 Days #8.5 04/25/22 Unknown Rx [ProAir HFA Inhaler] gram Allergies Allergy/AdvReac Type Severity Reaction Status Date / Time No Known Allergies Allergy Verified 02/27/21 22:17 ED Review of Systems ROS: Stated complaint: ASTHMA Other details as noted in HPI Constitutional: denies: chills, fever Eyes: denies: eye pain, eye discharge, vision change ENT: denies: ear pain, throat pain Respiratory: denies: cough, shortness of breath, wheezing Cardiovascular: denies: chest pain, palpitations Endocrine: no symptoms reported Gastrointestinal: denies: abdominal pain, nausea, diarrhea Genitourinary: denies: urgency, dysuria Musculoskeletal: denies: back pain, joint swelling, arthralgia Skin: denies: rash, lesions Neurological: denies: headache, weakness, paresthesias Psychiatric: denies: anxiety, depression Hematological/Lymphatic: denies: easy bleeding, easy bruising ED Past Medical Hx - Past Medical History Previous Medical History?: Yes Hx Hypertension: No Hx CVA: No Hx Heart Attack/AMI: No Hx Congestive Heart Failure: No Hx Diabetes: No Hx Asthma: Yes Hx COPD: No - Social History Smoking Status: Never Smoker Substance Use Type: None - Medications Home Medications: Home Medications Medication Instructions Recorded Confirmed Last Taken Type Fluticasone/Salmeterol (Nf) 1 each IH DAILY #1 blst.w.dev 12/17/16 05/19/18 Unknown Rx [Advair 250-50 Diskus (Nf)] Acetaminophen [Acetaminophen TAB] 650 mg PO Q4H PRN #30 tablet 05/21/18 Unknown Rx Albuterol Mdi (or & Nicu Only) 2 puff IH TID PRN #1 each 05/21/18 Unknown Rx [ProAir HFA Inhaler] Ipratropium/Albuterol Sulfate 1 ampul IH BIDRT #1 box 05/21/18 05/19/18 12/14/16 Rx [DUONEB *Not for PRN Use*] Ipratropium/Albuterol Sulfate 1 ampul IH Q6HRT PRN #30 ampul.neb 05/21/18 Unknown Rx [DUONEB *Not for PRN Use*] Montelukast [Singulair] 10 mg PO QPM #30 tablet 05/21/18 Unknown Rx Pantoprazole [Protonix TAB] 40 mg PO QDAY #7 tablet 05/21/18 Unknown Rx ALBUTEROL NEB's [Proventil 0.083% 2.5 mg IH TID PRN #1 box 09/04/20 Unknown Rx NEBS] Albuterol Mdi (or & Nicu Only) 2 puff IH QID PRN #8.5 gram 09/04/20 Unknown Rx [ProAir HFA Inhaler] predniSONE [Deltasone] 3 tab PO QDAY 3 Days #9 tab 09/04/20 Unknown Rx ALBUTEROL NEB's [Proventil 0.083% 2.5 mg IH TID PRN #30 neb 11/28/20 Unknown Rx NEBS] Albuterol Mdi (or & Nicu Only) 2 puff IH QID PRN #1 inhalation 11/28/20 Unknown Rx [ProAir HFA Inhaler] Montelukast [Singulair] 10 mg PO QPM #14 tablet 11/28/20 Unknown Rx predniSONE [Deltasone] 20 mg PO QDAY #5 tab 11/28/20 Unknown Rx ALBUTEROL NEB's [Proventil 0.083% 2.5 mg IH TID PRN #30 neb 02/27/21 Unknown Rx NEBS] Albuterol Mdi (or & Nicu Only) 1 puff IH Q4-6H PRN #1 inha 02/27/21 Unknown Rx [ProAir HFA Inhaler] Fluticasone/Salmeterol [Advair 1 each IH BID #1 blst.w.dev 02/27/21 Unknown Rx 250-50 Diskus] Montelukast [Singulair] 10 mg PO QPM #14 tablet 02/27/21 Unknown Rx predniSONE [Deltasone] 50 mg PO QDAY #5 tab 02/27/21 Unknown Rx Acetaminophen/Codeine [Tylenol 1 tab PO Q6H PRN #12 tab 06/10/21 Unknown Rx /Codeine # 3 tab] Penicillin V Potassium 500 mg PO Q6HR #40 tablet 06/10/21 Unknown Rx Albuterol Sulfate [Proair 90 mcg IH Q4H PRN #1 aer.pw.bas 07/02/21 Unknown Rx Digihaler] predniSONE [Deltasone] 20 mg PO QDAY #5 tab 07/02/21 Unknown Rx Ibuprofen [Motrin 600 MG tab] 600 mg PO Q8H PRN #20 tablet 01/01/22 Unknown Rx Albuterol Mdi (or & Nicu Only) 2 puff IH Q4HR PRN 30 Days #8.5 04/25/22 Unknown Rx [ProAir HFA Inhaler] gram ED Physical Exam - General Limitations: No Limitations General appearance: alert, in no apparent distress - Head Head exam: Present: atraumatic, normocephalic - Eye Eye exam: Present: normal appearance - ENT ENT exam: Present: mucous membranes moist - Neck Neck exam: Present: normal inspection - Respiratory Respiratory exam: Present: normal lung sounds bilaterally. Absent: respiratory distress, wheezes, chest wall tenderness, accessory muscle use - Cardiovascular Cardiovascular Exam: Present: regular rate, normal rhythm. Absent: systolic murmur, diastolic murmur, rubs, gallop - GI/Abdominal GI/Abdominal exam: Present: soft, normal bowel sounds - Rectal Rectal exam: Present: deferred - Extremities Exam Extremities exam: Present: normal inspection - Back Exam Back exam: Present: normal inspection - Neurological Exam Neurological exam: Present: alert, oriented X3 - Psychiatric Psychiatric exam: Present: normal affect, normal mood - Skin Skin exam: Present: warm, dry, intact, normal color. Absent: rash ED Course Vital Signs 04/25/22 11:37 Temperature 97.9 F Pulse Rate 87 Respiratory 18 Rate Blood Pressure 132/75 [Right] O2 Sat by Pulse 100 Oximetry ED Medical Decision Making - Medical Decision Making 36-year-old male with history of asthma in no acute distress at this time. Is here for medication refill for his asthma inhaler. The earliest that he can be seen by his primary care provider is this upcoming Saturday. Patient last use of his inhaler was 2 days ago. Patient has a remaining 0 puffs left on his current inhaler. Patient is stable for discharge. Patient will receive a prescription for inhaler. Patient agrees with plan of care and verbalized understanding. Vital Signs 04/25/22 11:37 Temperature 97.9 F Pulse Rate 87 Respiratory 18 Rate Blood Pressure 132/75 [Right] O2 Sat by Pulse 100 Oximetry Critical care attestation.: If time is entered above; I have spent that time in minutes in the direct care of this critically ill patient, excluding procedure time. ED Disposition Clinical Impression: Medication refill Disposition: HOME / SELF CARE / HOMELESS Is pt being admited?: No Does the pt Need Aspirin: No Condition: Stable Prescriptions: Albuterol Mdi (or & Nicu Only) [ProAir HFA Inhaler] 2 puff IH Q4HR PRN 30 Days #8.5 gram PRN Reason: Shortness Of Breath Referrals: BERTIN ORONA MD [Primary Care Provider] - 3-5 Days Time of Disposition: 12:49
== END 2022-04-25 13:54 | disposition home or self-care (01) ==
LOC: ED 11:16
DX: J45.909 Unspecified asthma, uncomplicated (principal); Z76.0 Encounter for issue of repeat prescription; Z79.899 Other long term (current) drug therapy
CPT/HCPCS: 99282

== ENCOUNTER 2022-07-24 18:10 | Emergency (ER) | payer OTHER ==
[2022-07-24] MEDS ORDERED: IPRATROPIUM 0.02% NEBU 2.5 ML IH ONE (22:14)
[2022-07-24] MEDS ORDERED: IPRATROPIUM/ALBUTEROL SULFATE 3 ML AMPUL.NEB IH ONE ×2 (22:27→22:32)
--- NOTE | 2022-07-24 23:53 | Emergency Department Report ---
ED General Adult HPI - General Chief complaint: Dyspnea/Respdistress Stated complaint: ASThMA Time Seen by Provider: 07/24/22 23:47 Source: patient Mode of arrival: Ambulatory Limitations: No Limitations - History of Present Illness Initial comments: Is a 36-year-old male with history of asthma who is out of albuterol and Advair. Patient rates symptoms as mild at this time there is no wheezing no shortness of breath no stridor no chest pain no nausea no vomiting no fever or chills. Current symptoms are exacerbated by environmental exposure. Current medication regimen is albuterol inhaler as needed, Advair 2 puffs daily. Patient denies other complaint at this time Severity scale (0 -10): 0 - Related Data Previous Rx's Medication Instructions Recorded Last Taken Type Fluticasone/Salmeterol (Nf) 1 each IH DAILY #1 blst.w.dev 12/17/16 Unknown Rx [Advair 250-50 Diskus (Nf)] Acetaminophen [Acetaminophen TAB] 650 mg PO Q4H PRN #30 tablet 05/21/18 Unknown Rx Albuterol Mdi (or & Nicu Only) 2 puff IH TID PRN #1 each 05/21/18 Unknown Rx [ProAir HFA Inhaler] Ipratropium/Albuterol Sulfate 1 ampul IH BIDRT #1 box 05/21/18 12/14/16 Rx [DUONEB *Not for PRN Use*] Ipratropium/Albuterol Sulfate 1 ampul IH Q6HRT PRN #30 ampul.neb 05/21/18 Unknown Rx [DUONEB *Not for PRN Use*] Montelukast [Singulair] 10 mg PO QPM #30 tablet 05/21/18 Unknown Rx Pantoprazole [Protonix TAB] 40 mg PO QDAY #7 tablet 05/21/18 Unknown Rx Albuterol Mdi (or & Nicu Only) 2 puff IH QID PRN #8.5 gram 09/04/20 Unknown Rx [ProAir HFA Inhaler] predniSONE [Deltasone] 3 tab PO QDAY 3 Days #9 tab 09/04/20 Unknown Rx ALBUTEROL NEB's [Proventil 0.083% 2.5 mg IH TID PRN #30 neb 11/28/20 Unknown Rx NEBS] Albuterol Mdi (or & Nicu Only) 2 puff IH QID PRN #1 inhalation 11/28/20 Unknown Rx [ProAir HFA Inhaler] Montelukast [Singulair] 10 mg PO QPM #14 tablet 11/28/20 Unknown Rx predniSONE [Deltasone] 20 mg PO QDAY #5 tab 11/28/20 Unknown Rx ALBUTEROL NEB's [Proventil 0.083% 2.5 mg IH TID PRN #30 neb 02/27/21 Unknown Rx NEBS] Albuterol Mdi (or & Nicu Only) 1 puff IH Q4-6H PRN #1 inha 02/27/21 Unknown Rx [ProAir HFA Inhaler] predniSONE [Deltasone] 50 mg PO QDAY #5 tab 02/27/21 Unknown Rx Acetaminophen/Codeine [Tylenol 1 tab PO Q6H PRN #12 tab 06/10/21 Unknown Rx /Codeine # 3 tab] Penicillin V Potassium 500 mg PO Q6HR #40 tablet 06/10/21 Unknown Rx Ibuprofen [Motrin 600 MG tab] 600 mg PO Q8H PRN #20 tablet 01/01/22 Unknown Rx Albuterol Mdi (or & Nicu Only) 2 puff IH Q4HR PRN 30 Days #8.5 04/25/22 Unknown Rx [ProAir HFA Inhaler] gram ALBUTEROL NEB's [Proventil 0.083% 2.5 mg IH TID PRN #1 box 07/24/22 Unknown Rx NEBS] Albuterol Sulfate [Proair 90 mcg IH Q4H PRN #1 aer.pw.bas 07/24/22 Unknown Rx Digihaler] Fluticasone/Salmeterol [Advair 1 each IH BID #1 blst.w.dev 07/24/22 Unknown Rx Diskus 250-50 mcg] Montelukast [Singulair] 10 mg PO QPM #30 tablet 07/24/22 Unknown Rx predniSONE [Deltasone] 40 mg PO QDAY 5 Days #10 tab 07/24/22 Unknown Rx Allergies Allergy/AdvReac Type Severity Reaction Status Date / Time No Known Allergies Allergy Verified 02/27/21 22:17 ED Review of Systems ROS: Stated complaint: ASTJMA Other details as noted in HPI Constitutional: denies: chills, fever Eyes: denies: eye pain, eye discharge, vision change ENT: denies: ear pain, throat pain Respiratory: cough, shortness of breath, wheezing Cardiovascular: denies: chest pain, palpitations Endocrine: no symptoms reported Gastrointestinal: denies: abdominal pain, nausea, diarrhea Genitourinary: denies: urgency, dysuria Musculoskeletal: denies: back pain, joint swelling, arthralgia Skin: denies: rash, lesions Neurological: denies: headache, weakness, paresthesias Psychiatric: denies: anxiety, depression Hematological/Lymphatic: denies: easy bleeding, easy bruising ED Past Medical Hx - Past Medical History Hx Hypertension: No Hx CVA: No Hx Heart Attack/AMI: No Hx Congestive Heart Failure: No Hx Diabetes: No Hx Asthma: Yes Hx COPD: No - Social History Smoking Status: Never Smoker Substance Use Type: None - Medications Home Medications: Home Medications Medication Instructions Recorded Confirmed Last Taken Type Fluticasone/Salmeterol (Nf) 1 each IH DAILY #1 blst.w.dev 12/17/16 05/19/18 Unknown Rx [Advair 250-50 Diskus (Nf)] Acetaminophen [Acetaminophen TAB] 650 mg PO Q4H PRN #30 tablet 05/21/18 Unknown Rx Albuterol Mdi (or & Nicu Only) 2 puff IH TID PRN #1 each 05/21/18 Unknown Rx [ProAir HFA Inhaler] Ipratropium/Albuterol Sulfate 1 ampul IH BIDRT #1 box 05/21/18 05/19/18 12/14/16 Rx [DUONEB *Not for PRN Use*] Ipratropium/Albuterol Sulfate 1 ampul IH Q6HRT PRN #30 ampul.neb 05/21/18 Unknown Rx [DUONEB *Not for PRN Use*] Montelukast [Singulair] 10 mg PO QPM #30 tablet 05/21/18 Unknown Rx Pantoprazole [Protonix TAB] 40 mg PO QDAY #7 tablet 05/21/18 Unknown Rx Albuterol Mdi (or & Nicu Only) 2 puff IH QID PRN #8.5 gram 09/04/20 Unknown Rx [ProAir HFA Inhaler] predniSONE [Deltasone] 3 tab PO QDAY 3 Days #9 tab 09/04/20 Unknown Rx ALBUTEROL NEB's [Proventil 0.083% 2.5 mg IH TID PRN #30 neb 11/28/20 Unknown Rx NEBS] Albuterol Mdi (or & Nicu Only) 2 puff IH QID PRN #1 inhalation 11/28/20 Unknown Rx [ProAir HFA Inhaler] Montelukast [Singulair] 10 mg PO QPM #14 tablet 11/28/20 Unknown Rx predniSONE [Deltasone] 20 mg PO QDAY #5 tab 11/28/20 Unknown Rx ALBUTEROL NEB's [Proventil 0.083% 2.5 mg IH TID PRN #30 neb 02/27/21 Unknown Rx NEBS] Albuterol Mdi (or & Nicu Only) 1 puff IH Q4-6H PRN #1 inha 02/27/21 Unknown Rx [ProAir HFA Inhaler] predniSONE [Deltasone] 50 mg PO QDAY #5 tab 02/27/21 Unknown Rx Acetaminophen/Codeine [Tylenol 1 tab PO Q6H PRN #12 tab 06/10/21 Unknown Rx /Codeine # 3 tab] Penicillin V Potassium 500 mg PO Q6HR #40 tablet 06/10/21 Unknown Rx Ibuprofen [Motrin 600 MG tab] 600 mg PO Q8H PRN #20 tablet 01/01/22 Unknown Rx Albuterol Mdi (or & Nicu Only) 2 puff IH Q4HR PRN 30 Days #8.5 04/25/22 Unknown Rx [ProAir HFA Inhaler] gram ALBUTEROL NEB's [Proventil 0.083% 2.5 mg IH TID PRN #1 box 07/24/22 Unknown Rx NEBS] Albuterol Sulfate [Proair 90 mcg IH Q4H PRN #1 aer.pw.bas 07/24/22 Unknown Rx Digihaler] Fluticasone/Salmeterol [Advair 1 each IH BID #1 blst.w.dev 07/24/22 Unknown Rx Diskus 250-50 mcg] Montelukast [Singulair] 10 mg PO QPM #30 tablet 07/24/22 Unknown Rx predniSONE [Deltasone] 40 mg PO QDAY 5 Days #10 tab 07/24/22 Unknown Rx ED Physical Exam - General Limitations: No Limitations General appearance: alert, in no apparent distress - Head Head exam: Present: normocephalic, normal inspection - Eye Eye exam: Present: PERRL, EOMI Pupils: Present: normal accommodation - ENT ENT exam: Present: normal orophraynx, mucous membranes moist - Neck Neck exam: Present: normal inspection, full ROM. Absent: lymphadenopathy - Respiratory Respiratory exam: Present: normal lung sounds bilaterally. Absent: respiratory distress, wheezes, stridor, chest wall tenderness - Cardiovascular Cardiovascular Exam: Present: regular rate, normal rhythm, normal heart sounds. Absent: systolic murmur, diastolic murmur, rubs, gallop - GI/Abdominal GI/Abdominal exam: Present: soft, normal bowel sounds. Absent: distended, tenderness - Rectal Rectal exam: Present: deferred - Extremities Exam Extremities exam: Present: normal inspection, full ROM, normal capillary refill - Back Exam Back exam: Present: normal inspection, full ROM. Absent: CVA tenderness (R), CVA tenderness (L) - Neurological Exam Neurological exam: Present: alert, oriented X3, CN II-XII intact - Expanded Neurological Exam Expanded Patient oriented to: Present: person, place, time Speech: Present: fluid speech Motor strength exam: RUE: 5, LUE: 5, RLE: 5, LLE: 5 Best Eye Response ([place]): (4) open spontaneously Best Motor Response ([place]): (6) obeys commands Best Verbal Response ([place]): (5) oriented [place] Total: 15 - Psychiatric Psychiatric exam: Present: normal affect, normal mood - Skin Skin exam: Present: warm, dry, intact, normal color. Absent: rash ED Course Vital Signs 07/24/22 07/24/22 18:47 22:30 Temperature 98.3 F Pulse Rate 98 H Pulse Rate [ 88 Posterior Bilateral Throughout] Respiratory 18 Rate Respiratory 18 Rate [Posterior Bilateral Throughout] Blood Pressure 133/76 [Left] O2 Sat by Pulse 99 Oximetry ED Medical Decision Making - Medical Decision Making Patient symptoms are mild there is no wheezing no shortness of breath no dizziness no chest pain at this time plan refill medications as requested. Follow-up primary care doctor in 2 to 3 days. Return to emergency department should symptoms worsen. Patient verbalized agreement and understanding with discharge plan. Patient DC'd home in stable condition at this time. Critical care attestation.: If time is entered above; I have spent that time in minutes in the direct care of this critically ill patient, excluding procedure time. ED Disposition Clinical Impression: Asthma Qualifiers: Asthma severity: mild Asthma persistence: intermittent Asthma complication type: unspecified Qualified Code(s): J45.20 - Mild intermittent asthma, u ncomplicated Disposition: 01 HOME / SELF CARE / HOMELESS Is pt being admited?: No Does the pt Need Aspirin: No Condition: Stable Instructions: Asthma (ED), Asthma, Adult Additional Instructions: Medication as prescribed, follow-up with your doctor in 2 to 3 days. Return to emergency department should symptoms worsen. Prescriptions: Fluticasone/Salmeterol [Advair Diskus 250-50 mcg] 1 each IH BID #1 blst.w.dev predniSONE [Deltasone] 40 mg PO QDAY 5 Days #10 tab Albuterol Sulfate [Proair Digihaler] 90 mcg IH Q4H PRN #1 aer.pw.bas PRN Reason: Wheezing ALBUTEROL NEB's [Proventil 0.083% NEBS] 2.5 mg IH TID PRN #1 box PRN Reason: Wheezing Montelukast [Singulair] 10 mg PO QPM #30 tablet Referrals: BERTIN ORONA MD [Staff Physician] - 3-5 Days Forms: Work/School Release Form(ED) Time of Disposition: 23:57
[2022-07-25 00:25] VITALS: BP 142/81
== END 2022-07-25 00:36 | disposition home or self-care (01) ==
LOC: ED 18:10
DX: J45.909 Unspecified asthma, uncomplicated (principal)
CPT/HCPCS: 94640; 94644; 99282